=== PATIENT | female | born 1985 | race Caucasian/White ===

== ENCOUNTER 2016-07-31 15:13 | Emergency (ER) | payer SELFPAY ==
[~2016-07-31] VITALS: Ht 162.6 cm; Wt 55.0 kg
[~2016-07-31 15:13] MED LIST: AMOX125T PO; HYDR1TAB12 PO; OXYC-302 PO
[2016-07-31] MEDS ORDERED: FAMOTIDINE 20 MG/2 ML IVP ONE (16:00)
[2016-07-31] MEDS ORDERED: SODIUM CHLORIDE FLUSH 10ML SYR IVF ONE (16:00)
[2016-07-31] MEDS ORDERED: ONDANSETRON 2MG/ML, 2ML IVPush ONE (16:00)
[2016-07-31] MEDS ORDERED: SODIUM CHLORIDE 0.9% 1,000ML IVBOLUS ONE (16:00)
[2016-07-31 16:38] LABS: ASPARTATE AMINO TRANSFERASE 167 U/L (15-37); BLOOD UREA NITROGEN 5 mg/dL (7-18)
[2016-07-31] MEDS ORDERED: LORazepam 1MG TABLET PO ONE (18:30)
[2016-07-31] MEDS ORDERED: MAALOX/HYOSCYAMINE/LIDOCAINE 45 ML BOTTLE PO ONE (18:30)
[2016-07-31] MEDS ORDERED: LORazepam 1MG TABLET ONE (19:41)
[2016-07-31] MEDS ORDERED: MAALOX/HYOSCYAMINE/LIDOCAINE 45 ML BOTTLE ONE (19:42)
[2016-07-31 20:55] VITALS: BP 107/62
== END 2016-07-31 20:58 | disposition home or self-care (01) ==
LOC: ED 20:15
DX: F10.239 Alcohol dependence with withdrawal, unspecified (principal); M25.561 Pain in right knee; R10.13 Epigastric pain; L01.01 Non-bullous impetigo
CPT/HCPCS: 36415; 74020; 80053; 81003; 83690; 84703; 85025

== ENCOUNTER 2016-08-28 06:13 | Inpatient (IN) | payer SELFPAY ==
[~2016-08-28] VITALS: Ht 162.6 cm; Wt 52.1 kg
[2016-08-28] MEDS ORDERED: LORazepam 2 MG/ML, 1ML ONE ×3 (07:25→10:26)
[2016-08-28] MEDS ORDERED: ONDANSETRON 2MG/ML, 2ML ONE ×2 (07:25→08:33)
[2016-08-28] MEDS ORDERED: SODIUM CHLORIDE FLUSH 10ML SYR IVF ONE (07:30)
[2016-08-28] MEDS ORDERED: SODIUM CHLORIDE 0.9% 1,000ML IVBOLUS ONE (07:30)
[2016-08-28] MEDS ORDERED: ONDANSETRON 2MG/ML, 2ML IVPush ONE ×2 (07:30→09:00)
[2016-08-28] MEDS: LORazepam 2 MG/ML, 1ML IVPush PRN ×4 (07:33→19:43)
[2016-08-28 08:06] LABS: ASPARTATE AMINO TRANSFERASE 503 U/L (15-37); BLOOD UREA NITROGEN 6 mg/dL (7-18)
[2016-08-28 08:47] LABS: HEMOGLOBIN 12.8 g/dL (11.7-16.4)
[2016-08-28 08:50] LABS: DIFF TOTAL CELLS COUNTED 100 CELL DIFF
[2016-08-28 08:53] LABS: ANISOCYTOSIS 1+; GIANT PLATELETS 1+; LARGE PLATELETS 1+; VERIFY COUNTS? YES
[2016-08-28 08:54] LABS: POLYCHROMASIA 1+
[2016-08-28 09:00] LABS: DAU SCREEN DISCLAIMER
[2016-08-28 09:27] LABS: HCG UR OBC PASS
[2016-08-28] MEDS ORDERED: POTASSIUM CHLORIDE 40 MEQ in SODIUM CHLORIDE 0.9% 500 ML IV ONE (11:00)
[2016-08-28] MEDS ORDERED: HALOPERIDOL 5 MG/ML IM PRN (11:00)
[2016-08-28] MEDS ORDERED: ONDANSETRON 2MG/ML, 2ML IVP PRN (11:00)
[2016-08-28] MEDS ORDERED: LORazepam 2 MG/ML, 1ML IVPush PRN (11:00)
[2016-08-28] MEDS ORDERED: ENALAPRILAT 1.25 MG/ML, 2ML IVPush PRN (11:00)
[2016-08-28] MEDS ORDERED: ENOXAPARIN 40 MG/0.4 ML SQ SCH (12:00)
[2016-08-28] MEDS ORDERED: POTASSIUM CHLORIDE 20 MEQ, MAGNESIUM SULFATE 1 GM, THIAMINE 100 MG, FOLIC ACID 1 MG, MV... IV SCH ×2 (12:00→16:00)
[2016-08-28 12:23] VITALS: BP 119/78
[2016-08-28] MEDS ORDERED: NICOTINE 14MG/24 HR PATCH.TD24 TD SCH (13:00)
[2016-08-28] MEDS: MORPHINE SULFATE 4 MG/ML, 1ML IVPush PRN ×3 (13:06→20:45)
[2016-08-28 19:40] VITALS: BP 120/77
[2016-08-29] MEDS: MORPHINE SULFATE 4 MG/ML, 1ML IVPush PRN ×2 (00:05→04:02)
[2016-08-29 00:07] VITALS: BP 128/81
[2016-08-29] MEDS ORDERED: NS + 20MEQ KCL 1,000 ML IV SCH (01:00)
[2016-08-29] MEDS: LORazepam 2 MG/ML, 1ML IVPush PRN ×2 (01:36→05:57)
[2016-08-29 06:32] LABS: ASPARTATE AMINO TRANSFERASE 313 U/L (15-37); BLOOD UREA NITROGEN 11 mg/dL (7-18)
[2016-08-29 06:55] VITALS: BP 129/81
[2016-08-29 06:59] LABS: HEMOGLOBIN 12.4 g/dL (11.7-16.4)
[2016-08-29 07:00] LABS: DIFF TOTAL CELLS COUNTED 100 CELL DIFF
[2016-08-29 07:05] LABS: ANISOCYTOSIS 1+; LARGE PLATELETS 1+; POLYCHROMASIA 1+; VERIFY COUNTS? YES
[2016-08-29 07:24] LABS: HOWELL-JOLLY BODIES 1+
== END 2016-08-29 09:45 | disposition left against medical advice (07) | DRG 439 ==
LOC: ED 06:32 → SUATTDRO 10:16 → EDIP 10:36 → 4EST 11:40
PROVIDERS: ADMIT Internal Medicine; ATTEND Internal Medicine
PROC: 0T9B70Z Drainage of Bladder with Drainage Device, Via Natural or Artificial Opening (ICD-10-PCS; principal; 2016-08-28)
DX: K85.20 Alcohol induced acute pancreatitis without necrosis or infection (principal); E87.1 Hypo-osmolality and hyponatremia; E87.6 Hypokalemia; D75.89 Other specified diseases of blood and blood-forming organs; K70.10 Alcoholic hepatitis without ascites; S09.90XA Unspecified injury of head, initial encounter; W18.30XA Fall on same level, unspecified, initial encounter; K76.0 Fatty (change of) liver, not elsewhere classified; Z53.21 Procedure and treatment not carried out due to patient leaving prior to being seen by health care provider; W18.39XA Other fall on same level, initial encounter; F10.129 Alcohol abuse with intoxication, unspecified; Y90.6 Blood alcohol level of 120-199 mg/100 ml; Z90.49 Acquired absence of other specified parts of digestive tract; Z88.6 Allergy status to analgesic agent; Z88.5 Allergy status to narcotic agent; Z87.891 Personal history of nicotine dependence; Y93.89 Activity, other specified; Z90.81 Acquired absence of spleen; Z90.722 Acquired absence of ovaries, bilateral; Y92.89 Other specified places as the place of occurrence of the external cause; Y99.8 Other external cause status
CPT/HCPCS: 36415; 70450; 80053; 80307; 81001; 81025; 83690; 83735; 84100; 84702; 85025; 87086; 93005; 96374; 96375; 96376; J1650; J2405; J3411; J3475; J3480; J2060; J7030; J7040

== ENCOUNTER 2016-09-10 17:31 | Emergency (ER) | payer SELFPAY ==
[~2016-09-10] VITALS: Ht 162.6 cm; Wt 52.0 kg
[2016-09-10] MEDS ORDERED: ONDANSETRON 2MG/ML, 2ML IVPush ONE (18:00)
[2016-09-10] MEDS ORDERED: FAMOTIDINE 20 MG/2 ML IVP ONE (18:00)
[2016-09-10] MEDS ORDERED: SODIUM CHLORIDE FLUSH 10ML SYR IVF ONE (18:00)
[2016-09-10] MEDS ORDERED: SODIUM CHLORIDE 0.9% 1,000ML IVBOLUS ONE (18:00)
[2016-09-10] MEDS ORDERED: FAMOTIDINE 20 MG/2 ML ONE (18:26)
[2016-09-10] MEDS ORDERED: ONDANSETRON 2MG/ML, 2ML ONE (18:26)
[2016-09-10 18:29] LABS: BLOOD UREA NITROGEN 6 mg/dL (7-18)
[2016-09-10 18:32] LABS: ASPARTATE AMINO TRANSFERASE 171 U/L (15-37)
[2016-09-10 18:45] LABS: DIFF TOTAL CELLS COUNTED 100 CELL DIFF
[2016-09-10 18:49] LABS: ANISOCYTOSIS 1+
[2016-09-10 18:51] LABS: POLYCHROMASIA 1+
[2016-09-10 18:55] LABS: HOWELL-JOLLY BODIES 1+; LARGE PLATELETS 1+
[2016-09-10 18:56] LABS: VERIFY COUNTS? YES
[2016-09-10 19:10] LABS: PATH.CAST-FLAG NOT PRESENT; SPERM-FLAG NOT PRESENT; SRC-FLAG NOT PRESENT; XTAL-FLAG NOT PRESENT; YLC-FLAG NOT PRESENT
[2016-09-10] MEDS ORDERED: OMNIPAQUE 350 MG/ML, 100ML BOTTLE ONE (19:56)
[2016-09-10] MEDS ORDERED: CHLORDIAZEPOXIDE 25 MG CAPSULE PO PRN (20:00)
[2016-09-10 20:35] VITALS: BP 115/77
== END 2016-09-10 20:41 | disposition home or self-care (01) ==
LOC: ED 20:35
DX: K85.20 Alcohol induced acute pancreatitis without necrosis or infection (principal); A08.4 Viral intestinal infection, unspecified; F10.20 Alcohol dependence, uncomplicated; F17.200 Nicotine dependence, unspecified, uncomplicated; Z90.49 Acquired absence of other specified parts of digestive tract; Z90.81 Acquired absence of spleen; Z88.5 Allergy status to narcotic agent
CPT/HCPCS: 36415; 74177; 80053; 81001; 83690; 85025; 87086; 96361; 96374; 96375; 99285; J2405; J7030; Q9967; S0028

== ENCOUNTER 2016-09-17 18:40 | Emergency (ER) | payer SELFPAY ==
[~2016-09-17] VITALS: Ht 162.6 cm; Wt 49.3 kg
[2016-09-17] MEDS ORDERED: OXYcodone/APAP 5/325MG TABLET ONE (20:20)
[2016-09-17] MEDS ORDERED: LORazepam 1MG TABLET ONE (20:20)
[2016-09-17] MEDS ORDERED: OXYcodone/APAP 5/325MG TABLET PO ONE (20:30)
[2016-09-17] MEDS ORDERED: LORazepam 1MG TABLET PO ONE (20:30)
[2016-09-17] MEDS ORDERED: SODIUM CHLORIDE 0.9% 1,000ML IVBOLUS ONE (20:30)
[2016-09-17] MEDS ORDERED: SODIUM CHLORIDE FLUSH 10ML SYR IVF ONE (20:30)
[2016-09-17 20:35] LABS: BLOOD UREA NITROGEN 4 mg/dL (7-18)
[2016-09-17 20:40] LABS: ASPARTATE AMINO TRANSFERASE 352 U/L (15-37)
[2016-09-17 20:46] LABS: DIFF TOTAL CELLS COUNTED 100 CELL DIFF
[2016-09-17 20:54] LABS: ANISOCYTOSIS 1+
[2016-09-17 20:55] LABS: HOWELL-JOLLY BODIES 1+; POLYCHROMASIA 1+
[2016-09-17 20:56] LABS: GIANT PLATELETS 1+
[2016-09-17 20:57] LABS: VERIFY COUNTS? YES
[2016-09-17] MEDS ORDERED: OMNIPAQUE 350 MG/ML, 100ML BOTTLE ONE (21:10)
[2016-09-17] MEDS ORDERED: BACITRACIN ZINC OINT 500U/GM, 0.9 GM ONE (22:00)
[2016-09-17 22:01] VITALS: BP 126/89
== END 2016-09-17 22:21 | disposition home or self-care (01) ==
LOC: ED 22:15
DX: S00.83XA Contusion of other part of head, initial encounter (principal); S00.33XA Contusion of nose, initial encounter; S00.531A Contusion of lip, initial encounter; S30.0XXA Contusion of lower back and pelvis, initial encounter; S30.1XXA Contusion of abdominal wall, initial encounter; K75.9 Inflammatory liver disease, unspecified; F10.20 Alcohol dependence, uncomplicated; Y04.8XXA Assault by other bodily force, initial encounter; Y93.89 Activity, other specified; Y92.89 Other specified places as the place of occurrence of the external cause; Y99.8 Other external cause status; Z87.440 Personal history of urinary (tract) infections
CPT/HCPCS: 36415; 70450; 70486; 72220; 74177; 80053; 84703; 85025; 96360; 99285; J7030; Q9967

== ENCOUNTER 2016-10-01 22:10 | Emergency (ER) | payer SELFPAY ==
[~2016-10-01] VITALS: Ht 162.6 cm; Wt 47.7 kg
[2016-10-01] MEDS ORDERED: ONDANSETRON ODT 4 MG PO ONE (23:30)
[2016-10-01] MEDS ORDERED: LORazepam 2 MG/ML, 1ML IVPush ONE (23:30)
[2016-10-01] MEDS ORDERED: SODIUM CHLORIDE 0.9% 1,000ML IVBOLUS ONE (23:30)
[2016-10-01 23:56] LABS: BLOOD UREA NITROGEN 10 mg/dL (7-18)
[2016-10-01 23:58] LABS: ASPARTATE AMINO TRANSFERASE 821 U/L (15-37)
[2016-10-01 23:59] LABS: HCG UR OBC PASS
[2016-10-02 00:21] LABS: DIFF TOTAL CELLS COUNTED 100 CELL DIFF
[2016-10-02 00:29] LABS: ANISOCYTOSIS 1+; VERIFY COUNTS? YES
[2016-10-02 00:30] LABS: POIKILOCYTOSIS 1+
[2016-10-02 00:31] LABS: OVALOCYTES 1+
[2016-10-02 00:32] LABS: TARGET CELLS 1+
[2016-10-02 00:39] LABS: HOWELL-JOLLY BODIES 1+
[2016-10-02 00:40] LABS: LARGE PLATELETS 1+
[2016-10-02] MEDS ORDERED: ONDANSETRON ODT 4 MG ONE (00:45)
[2016-10-02] MEDS ORDERED: LORazepam 2 MG/ML, 1ML ONE (00:45)
[2016-10-02 01:46] VITALS: BP 121/74
== END 2016-10-02 01:48 | disposition home or self-care (01) ==
LOC: ED 23:59
DX: S06.0X9A Concussion with loss of consciousness of unspecified duration, initial encounter (principal); S39.012A Strain of muscle, fascia and tendon of lower back, initial encounter; F10.129 Alcohol abuse with intoxication, unspecified; R10.11 Right upper quadrant pain; W10.9XXA Fall (on) (from) unspecified stairs and steps, initial encounter; Y93.89 Activity, other specified; Y99.8 Other external cause status; Y92.009 Unspecified place in unspecified non-institutional (private) residence as the place of occurrence of the external cause; Z90.49 Acquired absence of other specified parts of digestive tract
CPT/HCPCS: 36415; 70450; 72110; 80053; 80307; 81001; 81025; 83690; 85025; 87086; 96361; 96374; 99285; J2060; J7030; Q0162

== ENCOUNTER 2016-10-20 02:44 | Emergency (ER) | payer SELFPAY ==
[~2016-10-20] VITALS: Ht 162.6 cm; Wt 50.0 kg
[2016-10-20] MEDS ORDERED: FAMOTIDINE 20 MG/2 ML IVP ONE (03:00)
[2016-10-20] MEDS ORDERED: ONDANSETRON 2MG/ML, 2ML IVPush ONE (03:00)
[2016-10-20] MEDS ORDERED: SODIUM CHLORIDE FLUSH 10ML SYR IVF ONE (03:00)
[2016-10-20] MEDS ORDERED: SODIUM CHLORIDE 0.9% 1,000ML IVBOLUS ONE (03:00)
[2016-10-20] MEDS ORDERED: LORazepam 2 MG/ML, 1ML IVPush ONE ×2 (03:00→04:00)
[2016-10-20] MEDS ORDERED: FAMOTIDINE 20 MG/2 ML ONE (03:05)
[2016-10-20] MEDS ORDERED: ONDANSETRON 2MG/ML, 2ML ONE (03:05)
[2016-10-20] MEDS ORDERED: LORazepam 2 MG/ML, 1ML ONE (03:05)
[2016-10-20 03:19] LABS: ASPARTATE AMINO TRANSFERASE 361 U/L (15-37); BLOOD UREA NITROGEN 10 mg/dL (7-18)
[2016-10-20 03:40] LABS: DIFF TOTAL CELLS COUNTED 100 CELL DIFF
[2016-10-20 03:47] LABS: ANISOCYTOSIS 1+; VERIFY COUNTS? YES
[2016-10-20 03:49] LABS: OVALOCYTES 1+; TARGET CELLS 1+
[2016-10-20 03:58] LABS: HOWELL-JOLLY BODIES 1+
[2016-10-20 03:59] LABS: GIANT PLATELETS 1+; LARGE PLATELETS 1+
[2016-10-20 04:08] VITALS: BP 117/83
== END 2016-10-20 04:37 | disposition home or self-care (01) ==
LOC: ED 03:35
DX: K70.9 Alcoholic liver disease, unspecified (principal); F10.239 Alcohol dependence with withdrawal, unspecified; R45.1 Restlessness and agitation; Z90.49 Acquired absence of other specified parts of digestive tract; Z88.5 Allergy status to narcotic agent
CPT/HCPCS: 36415; 74022; 80053; 83690; 84703; 85025; 96361; 96374; 96375; 96376; 99285; J2060; J2405; J7030; S0028

== ENCOUNTER 2016-11-04 17:35 | Emergency (ER) | payer SELFPAY ==
[~2016-11-04] VITALS: Ht 157.5 cm; Wt 47.7 kg
[2016-11-04] MEDS ORDERED: SODIUM CHLORIDE 0.9% 1,000ML IVBOLUS ONE (18:30)
[2016-11-04] MEDS ORDERED: ONDANSETRON 2MG/ML, 2ML IVPush ONE (18:30)
[2016-11-04] MEDS ORDERED: THIAMINE 100MG TABLET PO ONE (18:30)
[2016-11-04] MEDS ORDERED: SERT25TA PO (18:38)
[2016-11-04] MEDS ORDERED: LORA-446 PO (18:38)
[2016-11-04] MEDS ORDERED: ONDANSETRON 2MG/ML, 2ML ONE (18:42)
[2016-11-04 18:55] LABS: ASPARTATE AMINO TRANSFERASE 233 U/L (15-37); BLOOD UREA NITROGEN 9 mg/dL (7-18)
[2016-11-04] MEDS ORDERED: THIAMINE 100MG TABLET ONE (18:57)
[2016-11-04] MEDS ORDERED: LORazepam 2 MG/ML, 1ML IVPush ONE (19:00)
[2016-11-04] MEDS ORDERED: LORazepam 2 MG/ML, 1ML ONE (19:09)
[2016-11-04 23:08] VITALS: BP 90/50
== END 2016-11-04 23:59 | disposition home or self-care (01) ==
LOC: ED 21:45
DX: Z00.00 Encounter for general adult medical examination without abnormal findings (principal); F10.129 Alcohol abuse with intoxication, unspecified; F41.9 Anxiety disorder, unspecified
CPT/HCPCS: 36415; 80053; 80307; 83690; 84703; 85025; 96361; 96374; 96375; 99285; J2060; J2405; J7030

== ENCOUNTER 2016-11-23 05:42 | Emergency (ER) | payer SELFPAY ==
[~2016-11-23] VITALS: Ht 162.6 cm; Wt 47.6 kg
[~2016-11-23 05:42] MED LIST changes: +LORA-446 PO; +SERT25TA PO
[2016-11-23] MEDS ORDERED: LORazepam 2 MG/ML, 1ML IVPush PRN (07:00)
[2016-11-23] MEDS ORDERED: THIAMINE 100MG TABLET PO ONE (07:00)
[2016-11-23] MEDS ORDERED: SODIUM CHLORIDE 0.9% 1,000ML IVBOLUS ONE (07:00)
[2016-11-23] MEDS ORDERED: LORazepam 2 MG/ML, 1ML ONE ×2 (07:04→08:51)
[2016-11-23 07:13] LABS: ASPARTATE AMINO TRANSFERASE 312 U/L (15-37); BLOOD UREA NITROGEN 10 mg/dL (7-18)
[2016-11-23 07:34] LABS: DIFF TOTAL CELLS COUNTED 100 CELL DIFF
[2016-11-23 07:37] LABS: ANISOCYTOSIS 1+; VERIFY COUNTS? YES
[2016-11-23 07:38] LABS: OVALOCYTES 1+; POIKILOCYTOSIS 1+; TARGET CELLS 1+
[2016-11-23 07:39] LABS: HOWELL-JOLLY BODIES 1+; LARGE PLATELETS 1+
[2016-11-23] MEDS ORDERED: THIAMINE 100MG TABLET ONE (07:49)
[2016-11-23] MEDS ORDERED: FAMOTIDINE 20 MG/2 ML ONE (07:50)
[2016-11-23] MEDS ORDERED: FAMOTIDINE 20 MG/2 ML IVPush ONE ×2 (08:00)
[2016-11-23 08:57] VITALS: BP 113/81
[2016-11-23] MEDS ORDERED: LORazepam 2 MG/ML, 1ML IVPush ONE (09:00)
== END 2016-11-23 08:59 | disposition home or self-care (01) ==
LOC: ED 06:37
DX: K29.20 Alcoholic gastritis without bleeding (principal); F10.20 Alcohol dependence, uncomplicated; F41.9 Anxiety disorder, unspecified; R00.0 Tachycardia, unspecified; Z90.49 Acquired absence of other specified parts of digestive tract
CPT/HCPCS: 36415; 80053; 83690; 84703; 85025; 93005; 96361; 96374; 96375; 96376; 99285; J2060; J7030; S0028

== ENCOUNTER 2017-01-04 23:55 | Emergency (ER) | payer OTHER ==
[~2017-01-04] VITALS: Ht 162.6 cm; Wt 48.0 kg
[2017-01-04 23:59] VITALS: BP 122/86
[2017-01-05] MEDS ORDERED: SODIUM CHLORIDE 0.9% 1,000ML IVBOLUS ONE (01:00)
[2017-01-05] MEDS ORDERED: NALOXONE 1 MG/ML, 2ML IVPush ONE (01:00)
== END 2017-01-05 01:18 | disposition home or self-care (01) ==
LOC: ED 23:58
DX: F10.120 Alcohol abuse with intoxication, uncomplicated (principal)
CPT/HCPCS: 36415; 80307; 99283

== ENCOUNTER 2017-01-13 14:35 | Emergency (ER) | payer MEDICAID, OTHER ==
[~2017-01-13] VITALS: Ht 162.6 cm; Wt 48.0 kg
[2017-01-13] MEDS ORDERED: LORazepam 2 MG/ML, 1ML IVPush ONE (16:00)
[2017-01-13] MEDS ORDERED: SODIUM CHLORIDE 0.9% 1,000ML IV ONE (16:00)
[2017-01-13] MEDS ORDERED: SODIUM CHLORIDE FLUSH 10ML SYR IVF ONE (16:00)
[2017-01-13] MEDS ORDERED: ONDANSETRON 2MG/ML, 2ML IVPush ONE (16:00)
[2017-01-13] MEDS ORDERED: KETOROLAC 30 MG/1 ML IVPush ONE (16:00)
[2017-01-13] MEDS ORDERED: KETOROLAC 30 MG/1 ML ONE (16:03)
[2017-01-13] MEDS ORDERED: ONDANSETRON 2MG/ML, 2ML ONE (16:03)
[2017-01-13] MEDS ORDERED: LORazepam 2 MG/ML, 1ML ONE (16:03)
[2017-01-13 16:26] LABS: ASPARTATE AMINO TRANSFERASE 132 U/L (15-37); BLOOD UREA NITROGEN 7 mg/dL (7-18)
[2017-01-13 16:41] LABS: HEMATOCRIT 40.3 % (34.6-47.8); WHITE BLOOD COUNT 3.6 x10^3/uL (3.4-10)
[2017-01-13 16:46] LABS: DIFF TOTAL CELLS COUNTED 100 CELL DIFF
[2017-01-13 16:49] LABS: VERIFY COUNTS? YES
[2017-01-13 16:50] LABS: ANISOCYTOSIS 1+; HYPOCHROMIA 1+; OVALOCYTES 1+; TARGET CELLS 1+
[2017-01-13 16:51] LABS: GIANT PLATELETS 1+; HOWELL-JOLLY BODIES 1+; LARGE PLATELETS 1+
[2017-01-13 18:06] VITALS: BP 121/83
== END 2017-01-13 18:08 | disposition home or self-care (01) ==
LOC: ED 15:09
DX: R10.11 Right upper quadrant pain (principal); F10.239 Alcohol dependence with withdrawal, unspecified
CPT/HCPCS: 36415; 80053; 83605; 85025; 93005; 96361; 96374; 96375; 99285; J1885; J2060; J2405; J7030

== ENCOUNTER 2017-01-17 00:48 | Emergency (ER) | payer MEDICAID ==
[~2017-01-17] VITALS: Ht 167.6 cm; Wt 52.3 kg
[2017-01-17] MEDS ORDERED: DIPH,PERTUSS(ACELL),TET VAC/PF 0.5 ML IM-VACC PRN (01:30)
[2017-01-17] MEDS ORDERED: LIDOCAINE 1%, 20ML SQ ONE (01:30)
[2017-01-17] MEDS ORDERED: L.E.T SOLUTION TP ONE (01:30)
[2017-01-17] MEDS ORDERED: DIPH,PERTUSS(ACELL),TET VAC/PF 0.5 ML IM-VACC ONE (01:31)
[2017-01-17 01:45] VITALS: BP 120/76
[2017-01-17] MEDS ORDERED: LIDOCAINE 1%, 20ML ONE (01:50)
== END 2017-01-17 04:07 | disposition home or self-care (01) ==
LOC: ED 01:13
DX: S01.511A Laceration without foreign body of lip, initial encounter (principal); F10.220 Alcohol dependence with intoxication, uncomplicated; Z88.5 Allergy status to narcotic agent; W18.39XA Other fall on same level, initial encounter; Y93.89 Activity, other specified; Y92.89 Other specified places as the place of occurrence of the external cause; Y99.8 Other external cause status
CPT/HCPCS: 12051; 70450; 70486; 72125; 90471; 90715

== ENCOUNTER 2017-01-23 05:17 | Emergency (ER) | payer MEDICAID ==
[~2017-01-23] VITALS: Ht 162.6 cm; Wt 48.0 kg
[2017-01-23] MEDS ORDERED: BACITRACIN ZINC OINT 500U/GM, 0.9 GM ONE (05:41)
[2017-01-23] MEDS: SODIUM CHLORIDE FLUSH 10ML SYR IVF ONE ×2 (05:49→05:53)
[2017-01-23] MEDS ORDERED: SODIUM CHLORIDE 0.9% 1,000ML IVBOLUS ONE (06:00)
[2017-01-23] MEDS ORDERED: HYDROcodone/APAP 5/325 TABLET ONE (06:54)
[2017-01-23] MEDS ORDERED: LIDOCAINE 1%, 20ML ONE (06:54)
[2017-01-23] MEDS ORDERED: HYDROcodone/APAP 5/325 TABLET PO ONE (07:30)
[2017-01-23] MEDS ORDERED: LIDOCAINE 1%, 20ML INFIL ONE (07:30)
[2017-01-23 07:47] VITALS: BP 117/89
== END 2017-01-23 07:50 | disposition home or self-care (01) ==
LOC: ED 05:35
DX: S00.83XA Contusion of other part of head, initial encounter (principal); S00.33XA Contusion of nose, initial encounter; S00.531A Contusion of lip, initial encounter; W01.0XXA Fall on same level from slipping, tripping and stumbling without subsequent striking against object, initial encounter; Y93.89 Activity, other specified; Y92.009 Unspecified place in unspecified non-institutional (private) residence as the place of occurrence of the external cause; Y99.8 Other external cause status
CPT/HCPCS: 70486; 93005; 96360; 99284; J3490; J7030

== ENCOUNTER 2017-01-23 09:38 | Inpatient (IN) | payer MEDICAID ==
[~2017-01-23] VITALS: Ht 162.6 cm; Wt 51.8 kg
[2017-01-23] MEDS ORDERED: SODIUM CHLORIDE 0.9% 1,000 ML IV ONE (10:07)
[2017-01-23] MEDS ORDERED: ONDANSETRON 2MG/ML, 2ML IVPush ONE (10:30)
[2017-01-23] MEDS ORDERED: THIAMINE 100 MG in SODIUM CHLORIDE 0.9% 50 ML IVPB ONE (10:30)
[2017-01-23] MEDS ORDERED: SODIUM CHLORIDE 0.9% 1,000ML IVBOLUS ONE (10:30)
[2017-01-23] MEDS ORDERED: SODIUM CHLORIDE FLUSH 10ML SYR IVF ONE (10:30)
[2017-01-23] MEDS ORDERED: LORazepam 2 MG/ML, 1ML ONE ×2 (10:41→11:57)
[2017-01-23] MEDS ORDERED: ONDANSETRON 2MG/ML, 2ML ONE (10:41)
[2017-01-23] MEDS: LORazepam 2 MG/ML, 1ML IVPush PRN ×6 (10:49→20:07)
[2017-01-23 11:17] LABS: BLOOD UREA NITROGEN 10 mg/dL (7-18)
[2017-01-23 11:23] LABS: ASPARTATE AMINO TRANSFERASE 203 U/L (15-37)
[2017-01-23 11:30] LABS: HEMATOCRIT 34.9 % (34.6-47.8); HEMOGLOBIN 11.5 g/dL (11.7-16.4); WHITE BLOOD COUNT 8.8 x10^3/uL (3.4-10)
[2017-01-23 11:36] LABS: DIFF TOTAL CELLS COUNTED 100 CELL DIFF
[2017-01-23 11:37] LABS: VERIFY COUNTS? YES
[2017-01-23 11:38] LABS: ANISOCYTOSIS 1+; HOWELL-JOLLY BODIES 1+; POIKILOCYTOSIS 1+
[2017-01-23 11:39] LABS: LARGE PLATELETS 1+; TARGET CELLS 1+
[2017-01-23] MEDS: SODIUM CHLORIDE 0.9% 1,000 ML IV SCH ×2 (12:56→19:36)
[2017-01-23] MEDS ORDERED: ONDANSETRON 2MG/ML, 2ML IVPush PRN (13:00)
[2017-01-23] MEDS ORDERED: POTASSIUM CHLORIDE 40 MEQ in SODIUM CHLORIDE 0.9% 500 ML IV ONE (13:00)
[2017-01-23] MEDS ORDERED: HALOPERIDOL 5 MG/ML IVPush PRN (13:00)
[2017-01-23] MEDS ORDERED: hydrALAzine 20 MG/ML, 1ML IVPush PRN (13:00)
[2017-01-23 14:06] LABS: BLOOD UREA NITROGEN 11 mg/dL (7-18)
[2017-01-23 14:21] VITALS: BP 115/76
[2017-01-23] MEDS: POTASSIUM CHLORIDE 20 MEQ, MAGNESIUM SULFATE 1 GM, FOLIC ACID 1 MG, THIAMINE 100 MG, MV... IV SCH (15:06)
[2017-01-23] MEDS: NYSTATIN 500,000 UNITS/5 ML UDC PO SCH ×2 (15:08→20:07)
[2017-01-23] MEDS: NICOTINE 14MG/24 HR PATCH.TD24 TD SCH (15:08)
[2017-01-23] MEDS: OXYcodone IR 5MG TABLET PO PRN (17:07)
[2017-01-23 20:10] VITALS: BP 125/83
[2017-01-24] MEDS: LORazepam 2 MG/ML, 1ML IVPush PRN ×3 (01:31→16:40)
[2017-01-24 01:38] VITALS: BP 128/92
[2017-01-24] MEDS: morphine SULFATE 10 MG/ML, 1ML IVPush PRN ×2 (01:39→05:49)
[2017-01-24] MEDS: SODIUM CHLORIDE 0.9% 1,000 ML IV SCH ×2 (04:00→10:40)
[2017-01-24] MEDS: NYSTATIN 500,000 UNITS/5 ML UDC PO SCH ×4 (05:49→21:32)
[2017-01-24 07:00] VITALS: BP 132/90
[2017-01-24 07:56] VITALS: BP 127/86
[2017-01-24] MEDS: PANTOPROZOLE 40MG TABLET PO SCH (08:30)
[2017-01-24 09:24] VITALS: BP 112/77
[2017-01-24 12:20] VITALS: BP 119/76
[2017-01-24] MEDS: NICOTINE 14MG/24 HR PATCH.TD24 TD SCH (13:00)
[2017-01-24] MEDS ORDERED: LIDOCAINE 2% VISCOUS 15 ML UDC MM PRN (16:00)
[2017-01-24] MEDS: POTASSIUM CHLORIDE 20 MEQ, MAGNESIUM SULFATE 1 GM, FOLIC ACID 1 MG, THIAMINE 100 MG, MV... IV SCH (16:41)
[2017-01-24 19:07] VITALS: BP 106/67
[2017-01-25 01:51] VITALS: BP 105/67
[2017-01-25] MEDS: SODIUM CHLORIDE 0.9% 1,000 ML IV SCH ×3 (02:12→15:20)
[2017-01-25] MEDS: PIPERACILLIN/TAZO/PMX 3.375GM 50 ML IV SCH ×3 (03:44→21:08)
[2017-01-25 04:41] LABS: BLOOD UREA NITROGEN 5 mg/dL (7-18)
[2017-01-25] MEDS: NYSTATIN 500,000 UNITS/5 ML UDC PO SCH ×4 (06:34→21:00)
[2017-01-25 07:26] VITALS: BP 101/65
[2017-01-25] MEDS: PANTOPROZOLE 40MG TABLET PO SCH (09:34)
[2017-01-25 12:41] VITALS: BP 95/59
[2017-01-25] MEDS: NICOTINE 14MG/24 HR PATCH.TD24 TD SCH (13:00)
[2017-01-25] MEDS: POTASSIUM CHLORIDE 20 MEQ, MAGNESIUM SULFATE 1 GM, FOLIC ACID 1 MG, THIAMINE 100 MG, MV... IV SCH (16:24)
[2017-01-25 19:44] VITALS: BP 103/64
[2017-01-26 01:40] VITALS: BP 112/74
[2017-01-26] MEDS: PIPERACILLIN/TAZO/PMX 3.375GM 50 ML IV SCH ×3 (04:40→21:10)
[2017-01-26] MEDS: NYSTATIN 500,000 UNITS/5 ML UDC PO SCH ×4 (04:41→21:10)
[2017-01-26 08:13] VITALS: BP 104/68
[2017-01-26] MEDS: SODIUM CHLORIDE 0.9% 1,000 ML IV SCH ×2 (08:13→15:28)
[2017-01-26] MEDS: PANTOPROZOLE 40MG TABLET PO SCH (08:13)
[2017-01-26] MEDS: LORazepam 2 MG/ML, 1ML IVPush PRN ×3 (11:11→20:28)
[2017-01-26 12:17] VITALS: BP 97/60
[2017-01-26] MEDS: NICOTINE 14MG/24 HR PATCH.TD24 TD SCH (13:16)
[2017-01-26] MEDS: POTASSIUM CHLORIDE 20 MEQ, MAGNESIUM SULFATE 1 GM, FOLIC ACID 1 MG, THIAMINE 100 MG, MV... IV SCH (13:58)
[2017-01-26 19:07] VITALS: BP 110/76
[2017-01-26] MEDS: OXYcodone IR 5MG TABLET PO PRN (21:07)
[2017-01-27 01:07] VITALS: BP 103/69
[2017-01-27] MEDS: OXYcodone IR 5MG TABLET PO PRN (01:13)
[2017-01-27] MEDS: LORazepam 2 MG/ML, 1ML IVPush PRN (01:14)
[2017-01-27] MEDS: SODIUM CHLORIDE 0.9% 1,000 ML IV SCH ×2 (02:26→08:52)
[2017-01-27] MEDS: PIPERACILLIN/TAZO/PMX 3.375GM 50 ML IV SCH (05:25)
[2017-01-27] MEDS: NYSTATIN 500,000 UNITS/5 ML UDC PO SCH (05:25)
[2017-01-27 07:26] VITALS: BP 100/64
[2017-01-27] MEDS: PANTOPROZOLE 40MG TABLET PO SCH (08:51)
== END 2017-01-27 12:46 | disposition left against medical advice (07) | DRG 189 ==
LOC: ED 09:42 → EDIP 12:56 → 3NE 13:50 → 4EST 01-24 08:06 → 3NE 01-24 08:11 → 4EST 01-24 09:07
PROVIDERS: ADMIT Internal Medicine; ATTEND Internal Medicine
DX: J96.00 Acute respiratory failure, unspecified whether with hypoxia or hypercapnia (principal); B37.0 Candidal stomatitis; I11.0 Hypertensive heart disease with heart failure; I50.9 Heart failure, unspecified; R56.9 Unspecified convulsions; E10.9 Type 1 diabetes mellitus without complications; F10.239 Alcohol dependence with withdrawal, unspecified; E87.6 Hypokalemia; F39 Unspecified mood [affective] disorder; F41.1 Generalized anxiety disorder; Z53.21 Procedure and treatment not carried out due to patient leaving prior to being seen by health care provider; H54.7 Unspecified visual loss; I25.10 Atherosclerotic heart disease of native coronary artery without angina pectoris; J44.9 Chronic obstructive pulmonary disease, unspecified; K70.10 Alcoholic hepatitis without ascites; K76.0 Fatty (change of) liver, not elsewhere classified; Z79.4 Long term (current) use of insulin; Z87.891 Personal history of nicotine dependence; Z90.49 Acquired absence of other specified parts of digestive tract; Z90.81 Acquired absence of spleen; Z91.81 History of falling
CPT/HCPCS: 36415; 71010; 80048; 80053; 80307; 81001; 83605; 83735; 84100; 84145; 84703; 85025; 87040; 87086; 87324; 96365; 96375; J2405; J2543; J3411; J3475; J3480; 92523-GN; J2060; J2270; J7030; J7040; J7121

== ENCOUNTER 2017-01-30 17:49 | Emergency (ER) | payer MEDICAID ==
[~2017-01-30] VITALS: Ht 162.6 cm; Wt 45.4 kg
[2017-01-30] MEDS ORDERED: SODIUM CHLORIDE 0.9% 1,000ML IVBOLUS ONE ×2 (18:30→20:00)
[2017-01-30 19:14] LABS: BLOOD UREA NITROGEN 6 mg/dL (7-18)
[2017-01-30 19:21] LABS: ACETAMINOPHEN < 2 mcg/mL (10-30)
[2017-01-30 19:31] LABS: HEMOGLOBIN 10.7 g/dL (11.7-16.4); WHITE BLOOD COUNT 17.2 x10^3/uL (3.4-10)
[2017-01-30] MEDS ORDERED: CEFTRIAXONE PMX 1GM/50ML 50 ML ONE (19:42)
[2017-01-30 19:51] LABS: DIFF TOTAL CELLS COUNTED 100 CELL DIFF
[2017-01-30 19:52] LABS: VERIFY COUNTS? YES
[2017-01-30 19:53] LABS: ANISOCYTOSIS 1+; OVALOCYTES 1+; POIKILOCYTOSIS 1+
[2017-01-30 19:54] LABS: TARGET CELLS 1+
[2017-01-30 19:55] LABS: HOWELL-JOLLY BODIES 1+; POLYCHROMASIA 1+
[2017-01-30 19:57] LABS: LARGE PLATELETS 1+
[2017-01-30] MEDS ORDERED: CEFTRIAXONE PMX 1GM/50ML 50 ML IVPB ONE (20:00)
[2017-01-30 22:05] VITALS: BP 92/58
== END 2017-01-30 23:45 | disposition home or self-care (01) ==
LOC: ED 18:27
DX: G92 Toxic encephalopathy (principal); F10.129 Alcohol abuse with intoxication, unspecified; F19.10 Other psychoactive substance abuse, uncomplicated
CPT/HCPCS: 36415; 71010; 80048; 80307; 80329; 81003; 82040; 83605; 84703; 85025; 87040; 96365; 99285; J0696; J7030; G0479; G0480

== ENCOUNTER 2017-02-07 23:34 | Inpatient (IN) | payer MEDICAID ==
[~2017-02-07] VITALS: Ht 162.6 cm; Wt 49.5 kg
[2017-02-08] MEDS ORDERED: FAMOTIDINE 20 MG/2 ML IVP ONE
[2017-02-08] MEDS ORDERED: ONDANSETRON 2MG/ML, 2ML IVPush ONE
[2017-02-08] MEDS ORDERED: SODIUM CHLORIDE FLUSH 10ML SYR IVF ONE
[2017-02-08] MEDS ORDERED: SODIUM CHLORIDE 0.9% 1,000ML IVBOLUS ONE
[2017-02-08 00:11] LABS: ASPARTATE AMINO TRANSFERASE 166 U/L (15-37); BLOOD UREA NITROGEN 6 mg/dL (7-18)
[2017-02-08 00:37] LABS: HEMATOCRIT 34.7 % (34.6-47.8); WHITE BLOOD COUNT 15.4 x10^3/uL (3.4-10)
[2017-02-08 01:17] LABS: DIFF TOTAL CELLS COUNTED 100 CELL DIFF
[2017-02-08 01:22] LABS: VERIFY COUNTS? YES
[2017-02-08 01:24] LABS: ANISOCYTOSIS 1+; POIKILOCYTOSIS 1+; POLYCHROMASIA 1+
[2017-02-08 01:25] LABS: HOWELL-JOLLY BODIES 1+; OVALOCYTES 1+; TARGET CELLS 1+
[2017-02-08 01:26] LABS: LARGE PLATELETS 1+
[2017-02-08] MEDS ORDERED: SODIUM CHLORIDE 0.9% 1,000 ML IV SCH (02:55)
[2017-02-08] MEDS ORDERED: hydrALAzine 20 MG/ML, 1ML IVPush PRN (03:00)
[2017-02-08] MEDS ORDERED: LORazepam 2 MG/ML, 1ML IVPush PRN (03:00)
[2017-02-08] MEDS ORDERED: ONDANSETRON 2MG/ML, 2ML IVPush PRN (03:00)
[2017-02-08] MEDS ORDERED: ENOXAPARIN 40 MG/0.4 ML SQ SCH (03:00)
[2017-02-08] MEDS ORDERED: MAGNESIUM SULFATE 1 GM, THIAMINE 100 MG, FOLIC ACID 1 MG, MVI ADULT 10 ML in SODIUM CHL... IV ONE ×2 (03:00→23:30)
[2017-02-08 05:06] VITALS: BP 110/73
[2017-02-08] MEDS: LORazepam 2 MG/ML, 1ML IVPush PRN ×2 (06:12→10:19)
[2017-02-08] MEDS ORDERED: PANTOPRAZOLE 40 MG IV IVPush SCH (07:30)
[2017-02-08 07:55] VITALS: BP 105/65
[2017-02-08 08:34] LABS: HEMOGLOBIN 10.5 g/dL (11.7-16.4); WHITE BLOOD COUNT 14.9 x10^3/uL (3.4-10)
[2017-02-08 08:40] LABS: ASPARTATE AMINO TRANSFERASE 152 U/L (15-37); BLOOD UREA NITROGEN 7 mg/dL (7-18)
[2017-02-08 09:35] LABS: DIFF TOTAL CELLS COUNTED 100 CELL DIFF
[2017-02-08 09:37] LABS: VERIFY COUNTS? YES
[2017-02-08 09:38] LABS: ANISOCYTOSIS 1+
[2017-02-08 09:42] LABS: HOWELL-JOLLY BODIES 1+
[2017-02-08 09:43] LABS: LARGE PLATELETS 1+
== END 2017-02-08 12:44 | disposition left against medical advice (07) | DRG 440 ==
LOC: ED 23:59 → EDIP 02-08 02:36 → 5SO 02-08 04:08
PROVIDERS: ADMIT Internal Medicine; ATTEND Internal Medicine
DX: K85.20 Alcohol induced acute pancreatitis without necrosis or infection (principal); G31.2 Degeneration of nervous system due to alcohol; K70.9 Alcoholic liver disease, unspecified; E87.6 Hypokalemia; Z53.21 Procedure and treatment not carried out due to patient leaving prior to being seen by health care provider; D53.9 Nutritional anemia, unspecified; F10.229 Alcohol dependence with intoxication, unspecified; H54.7 Unspecified visual loss; Z90.81 Acquired absence of spleen
CPT/HCPCS: 36415; 80053; 80307; 83690; 84703; 85025; 99285; J1650; C9113; G0479; J2060; J7030

== ENCOUNTER 2017-02-12 11:18 | Emergency (ER) | payer MEDICAID ==
[~2017-02-12] VITALS: Ht 165.1 cm; Wt 50.0 kg
[2017-02-12 12:23] VITALS: BP 109/78
== END 2017-02-12 13:43 | disposition home or self-care (01) ==
LOC: ED 12:27
DX: F10.220 Alcohol dependence with intoxication, uncomplicated (principal)
CPT/HCPCS: 99283

== ENCOUNTER 2017-02-27 23:45 | Emergency (ER) | payer MEDICAID ==
[~2017-02-27] VITALS: Ht 162.6 cm; Wt 53.0 kg
[2017-02-28] MEDS ORDERED: ACETAMINOPHEN 325 MG TABLET PO ONE (00:30)
[2017-02-28] MEDS ORDERED: ACETAMINOPHEN 325 MG TABLET ONE (00:37)
[2017-02-28 02:10] VITALS: BP 123/74
== END 2017-02-28 02:13 | disposition home or self-care (01) ==
LOC: ED 23:56
DX: S00.11XA Contusion of right eyelid and periocular area, initial encounter (principal); Z90.49 Acquired absence of other specified parts of digestive tract; Y04.0XXA Assault by unarmed brawl or fight, initial encounter; Y93.89 Activity, other specified; Y92.89 Other specified places as the place of occurrence of the external cause; Y99.8 Other external cause status
CPT/HCPCS: 70450; 70486; 99284

== ENCOUNTER 2018-10-09 06:51 | Emergency (ER) | payer SELFPAY ==
[~2018-10-09] VITALS: Ht 162.6 cm; Wt 62.0 kg
[~2018-10-09 06:51] MED LIST changes: -HYDR1TAB12 PO; +HYDR1TAB13 PO
--- NOTE | 2018-10-09 07:15 | NUR ---
PT NOT IN ROOM AT THIS TIME.
[2018-10-09] MEDS ORDERED: MORPHINE SULFATE 4 MG/ML, 1ML ONE ×2 (07:53→09:19)
[2018-10-09] MEDS ORDERED: ONDANSETRON 2MG/ML, 2ML ONE ×2 (07:54→09:19)
[2018-10-09] MEDS: MORPHINE SULFATE 4 MG/ML, 1ML IVPush PRN ×2 (07:57→09:22)
[2018-10-09] MEDS ORDERED: SODIUM CHLORIDE FLUSH 10ML SYR IVF ONE (08:00)
[2018-10-09] MEDS ORDERED: ONDANSETRON 2MG/ML, 2ML IVPush ONE ×2 (08:00→09:30)
--- NOTE | 2018-10-09 08:03 | NUR ---
FIRST CONTACT WITH PT. PT SITTING IN BED, HOLDING EMESIS BAG. NO ACUTE DISTRESS. REPORTS PAIN AT 6 OF 10.
--- NOTE | 2018-10-09 08:13 | NUR ---
PT REPORTS THAT SHE IS "THROWING UP AT LEAST ONCE PER HOUR". PT REPORTS PRIOR HX OF SPLENIC REMOVAL , APPENDECTOMY, AND REMOVAL OF GALLBLADDER. ALL OF THESE PROCEDURES SHE REPORTS, "OCCURED BETWEEN 2006 AND 2014". PT REPORTS DIARRHEA "ON FRIDAY" AND SHE HAD A "NORMAL" BM YESTERDAY AND "ATTEMPTED TO CRACKERS ALL DAY YESTERDAY, BUT COULDN'T KEEP THEM DOWN". PT DENIES BLOOD IN STOOL. HYPOACTIVE BOWEL SOUNDS. PT GIVEN MORPHINE AND ZOFRAN. PT STATES, "THAT ZOFRAN WORKS SO QUICK, I FEEL MUCH BETTER".
[2018-10-09 08:14] LABS: MEAN CORPUSCULAR HEMOGLOBIN 26.9 pg (27.0-34.8); MEAN CORPUSCULAR HGB CONC 31.9 g/dL (32.4-35.8); MEAN CORPUSCULAR VOLUME 84.3 fL (80-100); PLATELET COUNT 275 x10^3/uL (130-400); RED BLOOD COUNT 5.08 x10^6/uL (3.82-5.3); RED CELL DISTRIBUTION WIDTH 16.4 % (9.6-15.2)
[2018-10-09 08:24] LABS: ALANINE AMINOTRANSFERASE 22 U/L (12-78); ALBUMIN 4.3 g/dL (3.4-5.0); ANION GAP 8 mmol/L (5-15); CHLORIDE 97 mmol/L (98-107)
[2018-10-09 08:29] LABS: ALKALINE PHOSPHATASE 114 U/L (45-117); CREATININE 0.89 mg/dL (0.55-1.02); TOTAL PROTEIN 8.6 g/dL (6.4-8.2)
[2018-10-09] MEDS ORDERED: CALC200T3 PO (08:32)
--- NOTE | 2018-10-09 08:38 | NUR ---
PT REPORTS, "MY PAIN HAS GONE DOWN TO A 5, I THINK THE PAIN MEDS YOU GAVE ME ARE WORKING".
[2018-10-09 08:44] LABS: BASOPHILS % (AUTO) 1 % (0-1); EOSINOPHILS # (AUTO) 0.04 x10^3/uL (0-0.4); EOSINOPHILS % (AUTO) 0 % (1-7); LYMPHOCYTES # (AUTO) 3.04 x10^3/uL (1-3.4); LYMPHOCYTES % (AUTO) 34 % (22-44); MD SCAN; MONOCYTES # (AUTO) 0.63 x10^3/uL (0.2-0.8); MONOCYTES % (AUTO) 7 % (2-9); NEUTROPHILS # (AUTO) 5.04 x10^3/uL (1.8-6.8); NEUTROPHILS % (AUTO) 57 % (42-75)
[2018-10-09 08:47] LABS: MICROSCOPIC INDICATED
[2018-10-09 08:55] LABS: CULTURE INDICATED? YES
--- NOTE | 2018-10-09 09:12 | NUR ---
PT REPORTS, "THE PAIN AND NAUSEA MEDS WORKED GREAT AT FIRST, BUT NOW MY SYMPTOMS ARE COMING BACK" PT RATES HER PAIN AT A 6 AND REPORTS HER NAUSEA IS ALSO "ABOUT A 6". TOLD PT THAT WE WOULD NEED TO STRAIGHT CATH HER SO THAT WE CAN OBTAIN A PROPER URINE COLLECTION. PT IS AGREEABLE TO THIS.
[2018-10-09] MEDS ORDERED: FAMOTIDINE 20 MG/2 ML IVPush ONE (09:30)
[2018-10-09] MEDS ORDERED: SODIUM CHLORIDE 0.9% 1,000ML IVBOLUS ONE (09:30)
[2018-10-09] MEDS ORDERED: FAMOTIDINE 20 MG/2 ML ONE (09:46)
--- NOTE | 2018-10-09 09:53 | NUR ---
PAIN REDUCED TO 4, NAUSEA IMPROVING. PT TO CT.
[2018-10-09] MEDS ORDERED: OMNIPAQUE 350 MG/ML, 100ML BOTTLE ONE (10:14)
[2018-10-09 10:33] LABS: MICROSCOPIC NOT IND
[2018-10-09 10:36] LABS: CULTURE INDICATED? NO
--- NOTE | 2018-10-09 12:43 | NUR ---
PT DRESSED AND READY TO GO. IV DC'D WITH CANNULA INTACT, REVIEWED DC INSTRUCTIONS WITH PT, UNDERSTANDING VERBALIZED. PT PROVIDED WITH GOOD RX CARD AND CARE CHEST INFORMATION. PT LEFT AMB, GAIT STEADY. PT WITH FAMILY.
[2018-10-09 12:44] VITALS: BP 128/87
== END 2018-10-09 12:46 | disposition home or self-care (01) ==
LOC: ED 09:05
DX: R10.84 Generalized abdominal pain (principal); R11.2 Nausea with vomiting, unspecified; Z88.5 Allergy status to narcotic agent
CPT/HCPCS: 36415; 74021; 74177; 80053; 81001; 81003; 83690; 84703; 85025; 87086; 96361; 96374; 96375; 96376; 99284; J2270; J2405; J3490; J7030; Q9967

== ENCOUNTER 2018-10-10 21:35 | Inpatient (IN) | payer OTHER ==
[~2018-10-10] VITALS: Ht 162.6 cm; Wt 63.6 kg
[~2018-10-10 21:35] MED LIST changes: +CALC200T3 PO
--- NOTE | 2018-10-10 21:59 | NUR ---
PT WAS SEEN HERE YESTERDAY FOR BOWEL OBSTRUCTION AND SHE CHOSE TO GO HOME, PAIN/NAUSEA/VOMITING WORSE TODAY. PT PLACED ON MONITOR, VSS, PA AT BEDSIDE
[2018-10-10 22:18] LABS: MEAN CORPUSCULAR HEMOGLOBIN 27.2 pg (27.0-34.8); MEAN CORPUSCULAR HGB CONC 31.9 g/dL (32.4-35.8); MEAN CORPUSCULAR VOLUME 85.3 fL (80-100); MEAN PLATELET VOLUME 10.1 fL (7.4-10.4); PLATELET COUNT 219 x10^3/uL (130-400); RED BLOOD COUNT 4.17 x10^6/uL (3.82-5.3)
[2018-10-10 22:29] LABS: ALBUMIN 3.9 g/dL (3.4-5.0); ANION GAP 7 mmol/L (5-15); CALCIUM 8.3 mg/dL (8.5-10.1); CHLORIDE 102 mmol/L (98-107)
[2018-10-10] MEDS ORDERED: ONDANSETRON 2MG/ML, 2ML ONE (22:29)
[2018-10-10] MEDS ORDERED: MORPHINE SULFATE 4 MG/ML, 1ML ONE (22:29)
[2018-10-10] MEDS ORDERED: SODIUM CHLORIDE FLUSH 10ML SYR IVF ONE (22:30)
[2018-10-10] MEDS ORDERED: MORPHINE SULFATE 4 MG/ML, 1ML IVPush PRN ×2 (22:30→23:00)
[2018-10-10] MEDS ORDERED: ONDANSETRON 2MG/ML, 2ML IVPush ONE (22:30)
[2018-10-10 22:31] LABS: MD YES
[2018-10-10 22:33] LABS: ANISOCYTOSIS 1+; LYMPH#(MANUAL) 1.92 x10^3/uL (1-3.4); LYMPHS% (MANUAL) 19 % (22-44); MONOS#(MANUAL) 0.81 x10^3/uL (0.3-2.7); MONOS% (MANUAL) 8 % (2-9); NRBC % (MANUAL) 1 % (0-1); SEG#(MANUAL) 7.37 x10^3/uL (1.8-6.8); SEGS% (MANUAL) 73 % (42-75)
[2018-10-10 22:34] LABS: ECHINOCYTES 1+
[2018-10-10 22:35] LABS: ALANINE AMINOTRANSFERASE 22 U/L (12-78); ALKALINE PHOSPHATASE 95 U/L (45-117); BILIRUBIN,TOTAL 0.5 mg/dL (0.2-1.0); CREATININE 0.87 mg/dL (0.55-1.02); OVALOCYTES 1+; PMNS WITH VACUOLES 1+; TOTAL PROTEIN 7.2 g/dL (6.4-8.2)
[2018-10-10 22:36] LABS: <PLATELET ESTIMATE> ADEQUATE; ACANTHOCYTES 1+; HOWELL-JOLLY BODIES 1+
[2018-10-10 22:37] LABS: <PLT MORPHOLOGY> NORMAL PLT MORPH
[2018-10-10] MEDS ORDERED: SODIUM CHLORIDE 0.9% 1,000 ML IV ONE (22:52)
[2018-10-10] MEDS ORDERED: ONDANSETRON 2MG/ML, 2ML IVPush PRN (23:00)
[2018-10-10 23:04] LABS: CULTURE INDICATED? YES; MICROSCOPIC INDICATED
--- NOTE | 2018-10-10 23:04 | NUR ---
REPORT TO JUANA BENITEZ
[2018-10-10] MEDS: BISACODYL 10 MG SUPP PR SCH (23:30)
[2018-10-10] MEDS: CEFTRIAXONE PMX 1GM/50ML 50 ML IV SCH (23:49)
[2018-10-10] MEDS: NS + 20MEQ KCL 1,000 ML IV SCH (23:49)
[2018-10-10 23:53] VITALS: BP 114/77
[2018-10-11] MEDS: morphine SULFATE 10 MG/ML, 1ML IVPush PRN ×10 (00:12→23:30)
[2018-10-11] MEDS ORDERED: MORPHINE SULFATE 4 MG/ML, 1ML ONE (04:27)
[2018-10-11 05:00] LABS: BASOPHILS # (AUTO) 0.09 x10^3/uL (0-0.1); BASOPHILS % (AUTO) 1 % (0-1); EOSINOPHILS # (AUTO) 0.09 x10^3/uL (0-0.4); EOSINOPHILS % (AUTO) 1 % (1-7); LYMPHOCYTES # (AUTO) 2.75 x10^3/uL (1-3.4); LYMPHOCYTES % (AUTO) 33 % (22-44); MD NO; MEAN CORPUSCULAR HEMOGLOBIN 27.2 pg (27.0-34.8); MEAN CORPUSCULAR HGB CONC 31.8 g/dL (32.4-35.8); MEAN CORPUSCULAR VOLUME 85.4 fL (80-100); MEAN PLATELET VOLUME 10.9 fL (7.4-10.4); MONOCYTES % (AUTO) 10 % (2-9); NEUTROPHILS # (AUTO) 4.67 x10^3/uL (1.8-6.8); NEUTROPHILS % (AUTO) 56 % (42-75); PLATELET COUNT 210 x10^3/uL (130-400); RED BLOOD COUNT 4.29 x10^6/uL (3.82-5.3); RED CELL DISTRIBUTION WIDTH 16.2 % (9.6-15.2)
[2018-10-11 05:12] LABS: CHLORIDE 104 mmol/L (98-107)
[2018-10-11 05:19] LABS: ALANINE AMINOTRANSFERASE 24 U/L (12-78); ALBUMIN 3.7 g/dL (3.4-5.0); ALKALINE PHOSPHATASE 102 U/L (45-117); ANION GAP 8 mmol/L (5-15); BILIRUBIN,TOTAL 0.7 mg/dL (0.2-1.0); CALCIUM 8.6 mg/dL (8.5-10.1); CREATININE 0.75 mg/dL (0.55-1.02); TOTAL PROTEIN 7.3 g/dL (6.4-8.2)
[2018-10-11] MEDS: KETOROLAC 30 MG/1 ML IV PRN ×3 (05:45→21:20)
[2018-10-11 07:25] VITALS: BP 115/74
[2018-10-11] MEDS: NS + 20MEQ KCL 1,000 ML IV SCH (07:30)
[2018-10-11] MEDS ORDERED: GLUCAGON 1 MG IM PRN (08:00)
[2018-10-11] MEDS ORDERED: DEXTROSE 50%, 50ML SYRINGE IVPush PRN (08:00)
[2018-10-11] MEDS ORDERED: DEXTROSE 4 GM TAB.CHEW PO PRN (08:00)
[2018-10-11] MEDS: D5%-0.45NACL+KCL 20MEQ 1,000 ML IV SCH ×2 (08:10→16:55)
[2018-10-11] MEDS: SODIUM CHLORIDE FLUSH 10ML SYR IVF SCH ×2 (08:10→21:00)
[2018-10-11] MEDS: ONDANSETRON 2MG/ML, 2ML IVPush PRN ×3 (08:10→23:30)
[2018-10-11] MEDS: BISACODYL 10 MG SUPP PR SCH (08:17)
[2018-10-11] MEDS ORDERED: NICOTINE 7 MG/24 HR PATCH.TD24 ONE (11:59)
[2018-10-11] MEDS: NICOTINE 7 MG/24 HR PATCH.TD24 TD SCH (12:07)
[2018-10-11 13:40] VITALS: BP 120/78
[2018-10-11 20:02] VITALS: BP 135/89
[2018-10-11] MEDS: CEFTRIAXONE PMX 1GM/50ML 50 ML IV SCH (23:30)
[2018-10-12 02:33] VITALS: BP 132/90
[2018-10-12] MEDS: morphine SULFATE 10 MG/ML, 1ML IVPush PRN ×7 (02:38→22:32)
[2018-10-12] MEDS: D5%-0.45NACL+KCL 20MEQ 1,000 ML IV SCH ×2 (03:32→16:01)
[2018-10-12] MEDS: KETOROLAC 30 MG/1 ML IV PRN ×2 (03:38→16:32)
[2018-10-12 04:59] LABS: ALBUMIN 3.2 g/dL (3.4-5.0); ANION GAP 6 mmol/L (5-15); CALCIUM 7.9 mg/dL (8.5-10.1); CHLORIDE 105 mmol/L (98-107)
[2018-10-12 05:04] LABS: ALANINE AMINOTRANSFERASE 24 U/L (12-78); ALKALINE PHOSPHATASE 90 U/L (45-117); BILIRUBIN,TOTAL 0.5 mg/dL (0.2-1.0); CREATININE 0.65 mg/dL (0.55-1.02); TOTAL PROTEIN 6.5 g/dL (6.4-8.2)
[2018-10-12] MEDS: ONDANSETRON 2MG/ML, 2ML IVPush PRN ×2 (06:21→12:59)
[2018-10-12] MEDS ORDERED: POTASSIUM CHLORIDE 40 MEQ in SODIUM CHLORIDE 0.9% 500 ML IV ONE (07:30)
[2018-10-12] MEDS: HEPARIN 5,000 UNITS/ML, 1ML SQ SCH ×3 (07:56→23:40)
[2018-10-12] MEDS: SODIUM CHLORIDE FLUSH 10ML SYR IVF SCH ×2 (07:57→22:31)
[2018-10-12] MEDS: BISACODYL 10 MG SUPP PR SCH (07:57)
[2018-10-12 08:08] VITALS: BP 126/77
[2018-10-12] MEDS: NICOTINE 7 MG/24 HR PATCH.TD24 TD SCH (11:55)
[2018-10-12 13:16] VITALS: BP 123/79
[2018-10-12] MEDS ORDERED: FAMOTIDINE 20 MG/2 ML IVPush SCH (19:30)
[2018-10-12] MEDS: FAMOTIDINE 20 MG/2 ML IVPush SCH (19:32)
[2018-10-12 20:35] VITALS: BP 129/88
[2018-10-12] MEDS ORDERED: MORPHINE SULFATE 4 MG/ML, 1ML ONE (22:27)
[2018-10-12] MEDS: CEFTRIAXONE PMX 1GM/50ML 50 ML IV SCH (23:39)
[2018-10-13] MEDS ORDERED: MORPHINE SULFATE 4 MG/ML, 1ML ONE ×2 (02:18→06:28)
[2018-10-13] MEDS: morphine SULFATE 10 MG/ML, 1ML IVPush PRN ×3 (02:21→09:33)
[2018-10-13] MEDS: D5%-0.45NACL+KCL 20MEQ 1,000 ML IV SCH (02:22)
[2018-10-13 02:23] VITALS: BP 127/88
[2018-10-13 05:18] LABS: ANION GAP 5 mmol/L (5-15); CALCIUM 8.2 mg/dL (8.5-10.1); CHLORIDE 106 mmol/L (98-107)
[2018-10-13 05:20] LABS: CREATININE 0.64 mg/dL (0.55-1.02)
[2018-10-13] MEDS: HEPARIN 5,000 UNITS/ML, 1ML SQ SCH ×3 (07:30→23:21)
[2018-10-13 07:48] VITALS: BP 117/76
[2018-10-13] MEDS: FAMOTIDINE 20 MG/2 ML IVPush SCH (08:16)
[2018-10-13] MEDS: SODIUM CHLORIDE FLUSH 10ML SYR IVF SCH ×2 (08:18→20:47)
[2018-10-13] MEDS: BISACODYL 10 MG SUPP PR SCH (08:18)
[2018-10-13] MEDS ORDERED: D5%-0.45NACL+KCL 20MEQ 1,000 ML IV SCH (10:00)
[2018-10-13] MEDS: OXYcodone IR 5MG TABLET PO PRN ×2 (12:18→18:19)
[2018-10-13] MEDS: NICOTINE 7 MG/24 HR PATCH.TD24 TD SCH (12:20)
[2018-10-13 13:08] VITALS: BP 102/65
[2018-10-13] MEDS: KETOROLAC 30 MG/1 ML IV PRN ×2 (14:38→21:21)
[2018-10-13] MEDS: OMEPRAZOLE 20 MG CAPSULE.DR PO SCH (15:11)
[2018-10-13] MEDS: MORPHINE SULFATE 4 MG/ML, 1ML IVPush PRN ×2 (15:11→20:47)
[2018-10-13 19:58] VITALS: BP 109/70
[2018-10-13] MEDS: CEFDINIR 300 MG CAPSULE PO SCH (20:46)
[2018-10-14 00:54] VITALS: BP 111/76
[2018-10-14] MEDS: OXYcodone IR 5MG TABLET PO PRN ×2 (01:29→08:27)
[2018-10-14] MEDS: MORPHINE SULFATE 4 MG/ML, 1ML IVPush PRN (03:08)
[2018-10-14] MEDS: OMEPRAZOLE 20 MG CAPSULE.DR PO SCH (06:00)
[2018-10-14] MEDS: KETOROLAC 30 MG/1 ML IV PRN (06:00)
[2018-10-14 06:41] LABS: ANION GAP 5 mmol/L (5-15); CALCIUM 8.5 mg/dL (8.5-10.1); CHLORIDE 108 mmol/L (98-107)
[2018-10-14 06:43] LABS: CREATININE 0.59 mg/dL (0.55-1.02)
[2018-10-14 07:11] VITALS: BP 103/67
[2018-10-14] MEDS: BISACODYL 10 MG SUPP PR SCH (08:18)
[2018-10-14] MEDS: CEFDINIR 300 MG CAPSULE PO SCH (08:27)
[2018-10-14] MEDS: SODIUM CHLORIDE FLUSH 10ML SYR IVF SCH (08:28)
[2018-10-14] MEDS ORDERED: CEFD300C37 PO (10:26)
[2018-10-14] MEDS ORDERED: OMEP-110 PO (10:26)
== END 2018-10-14 11:35 | disposition home or self-care (01) | DRG 389 ==
LOC: ED 22:41 → EDIP 22:52 → 3NW 23:21 → DCLOUNGE 10-14 11:34
PROVIDERS: ADMIT Family Medicine; ATTEND Family Medicine
PROC: 0D9670Z Drainage of Stomach with Drainage Device, Via Natural or Artificial Opening (ICD-10-PCS; principal; 2018-10-10)
DX: K56.51 Intestinal adhesions [bands], with partial obstruction (principal); N39.0 Urinary tract infection, site not specified; E87.6 Hypokalemia; E16.2 Hypoglycemia, unspecified; R00.0 Tachycardia, unspecified; Z90.49 Acquired absence of other specified parts of digestive tract; Z88.6 Allergy status to analgesic agent; Z90.81 Acquired absence of spleen; Z72.89 Other problems related to lifestyle; Z87.891 Personal history of nicotine dependence; Z88.5 Allergy status to narcotic agent
CPT/HCPCS: 36415; 74018; 74021; 74250; J3490; 80048; 80053; 81001; 82962; 83690; 83735; 84100; 84703; 85025; 87086; 96374; 96375; G0378; J0696; J1644; J1885; J2405; J3480; J2270; J7040

== ENCOUNTER 2019-04-08 17:45 | Emergency (ER) | payer OTHER ==
[~2019-04-08] VITALS: Ht 162.6 cm; Wt 65.0 kg
[~2019-04-08 17:45] MED LIST changes: +CEFD300C37 PO; +OMEP-110 PO
--- NOTE | 2019-04-08 18:09 | NUR ---
PATIENT BROUGHT BACK FROM [facility] WITH CHIEF COMPLAINT OF ABD PAIN WITH N/V FOR 5 DAYS. PATIENTS STATES IT FEELS SIMILAR TO PREVIOUS "GI BLOCKAGES". THE PATIENT IS ALERT, ORIENTED, WARM AND DRY.
[2019-04-08] MEDS ORDERED: ONDANSETRON 2MG/ML, 2ML IVPush ONE (18:30)
[2019-04-08] MEDS ORDERED: LORazepam 2 MG/ML, 1ML IVPush ONE (18:30)
[2019-04-08] MEDS ORDERED: MORPHINE SULFATE 4 MG/ML, 1ML IVPush PRN (18:30)
[2019-04-08] MEDS ORDERED: PROMETHAZINE 25 MG/ML, 1ML IM ONE (18:30)
[2019-04-08] MEDS ORDERED: SODIUM CHLORIDE FLUSH 10ML SYR IVF ONE (18:30)
[2019-04-08] MEDS ORDERED: ONDANSETRON 2MG/ML, 2ML ONE (18:43)
[2019-04-08] MEDS ORDERED: MORPHINE SULFATE 4 MG/ML, 1ML ONE (18:43)
[2019-04-08] MEDS ORDERED: LORazepam 2 MG/ML, 1ML ONE (18:44)
[2019-04-08 18:52] LABS: ALANINE AMINOTRANSFERASE 42 U/L (12-78); ALBUMIN 3.9 g/dL (3.4-5.0); ANION GAP 9 mmol/L (5-15); CALCIUM 8.8 mg/dL (8.5-10.1); CHLORIDE 106 mmol/L (98-107); CREATININE 0.72 mg/dL (0.55-1.02)
[2019-04-08 18:53] LABS: MICROSCOPIC INDICATED
[2019-04-08 18:57] LABS: ALKALINE PHOSPHATASE 91 U/L (45-117); BILIRUBIN,TOTAL 0.4 mg/dL (0.2-1.0); TOTAL PROTEIN 8.5 g/dL (6.4-8.2)
[2019-04-08 19:06] LABS: MEAN CORPUSCULAR HEMOGLOBIN 28.2 pg (27.0-34.8); MEAN CORPUSCULAR VOLUME 88.1 fL (80-100); MEAN PLATELET VOLUME 10.2 fL (7.4-10.4); PLATELET COUNT 187 x10^3/uL (130-400); RED BLOOD COUNT 4.92 x10^6/uL (3.82-5.3)
[2019-04-08 19:07] LABS: MD YES
[2019-04-08 19:09] LABS: CULTURE INDICATED? YES
[2019-04-08 19:09] LABS: ANISOCYTOSIS 1+; EOS#(MANUAL) 0.09 x10^3/uL (0.0-0.4); EOS% (MANUAL) 2 % (1-7); LYMPH#(MANUAL) 1.98 x10^3/uL (1-3.4); LYMPHS% (MANUAL) 46 % (22-44); MONOS#(MANUAL) 0.26 x10^3/uL (0.3-2.7); MONOS% (MANUAL) 6 % (2-9); REACTIVE LYMPHS # (MANUAL) 0.09 x10^3/uL (0-0); REACTIVE LYMPHS % (MANUAL) 2 % (0-0); SEG#(MANUAL) 1.89 x10^3/uL (1.8-6.8); SEGS% (MANUAL) 44 % (42-75)
[2019-04-08 19:10] LABS: OVALOCYTES 1+; POLYCHROMASIA 1+; TARGET CELLS 1+
--- NOTE | 2019-04-08 19:10 | NUR ---
REPORT FROM EBER BENITEZ LEFT PIV PLACED WITH US TO LEFT FOREARM. PATIENT THEN MEDICATED WITH MORPHINE/ATIVAN/ZOFRAN/1L NS (PHENERGAN HELD BY TOP DYEING MACHINE TENDER AFTER COMMUNICATION OF TOO MANY SEDATING MEDICATIONS TO PROVIDER)-PROVIDER AGREEABLE HR 123 (ETOH WITHDRAWAL/PAIN/DEHYDRATION FROM VOMITING), 119/83 WILL CONTINUE TO CLOSELY MONITOR
[2019-04-08 19:11] LABS: <PLATELET ESTIMATE> ADEQUATE; LARGE PLATELETS 1+
[2019-04-08] MEDS ORDERED: SODIUM CHLORIDE 0.9% 1,000ML IVBOLUS ONE (19:30)
[2019-04-08 19:56] VITALS: BP 119/93
[2019-04-08] MEDS ORDERED: DIAZEPAM 5 MG TABLET PO ONE (20:00)
--- NOTE | 2019-04-08 20:00 | NUR ---
1L NS COMPLETE REPORTS PAIN IMPROVED FROM 8- 4 HR RATE IMPROVED TO 105 pROVIDER TO BEDSIDE TO EXPLAIN POC (D/C SHORTLY AFTER FURTHER ETOH DETOX RX)
[2019-04-08] MEDS ORDERED: PROMETHAZINE 25 MG/ML, 1ML ONE (20:04)
[2019-04-08] MEDS ORDERED: DIAZEPAM 5 MG TABLET ONE (20:04)
--- NOTE | 2019-04-08 20:19 | NUR ---
MEDICATED PER EMAR (CINDER BLOCK MASON/PROVIDER DECIDED TO ADMIN PHENERGAN PATIENT WITH CONTINUED NAUSEA/NOT SEDATED AT ALL. ALERT/ORIENTED/WALKING AROUND) SIGNIFICANT OTHER AT BEDSIDE-TO TAKE PATIENT HOME
--- NOTE | 2019-04-08 20:42 | NUR ---
POST RE-MEDICATION PATIENT SAFE FOR D/C IN CARE OF SIGNIFICANT OTHER PROVIDED WITH LIST OF DETOX RESOURCES IN [place]OWN ASKED PROVIDER IF ETOH WEANING MEDICATIONS APPROPRIATE-PROVIDER DEFERRED
== END 2019-04-08 20:45 | disposition home or self-care (01) ==
LOC: ED 19:32
DX: R10.84 Generalized abdominal pain (principal); R11.2 Nausea with vomiting, unspecified; F10.220 Alcohol dependence with intoxication, uncomplicated; R00.0 Tachycardia, unspecified; Y90.0 Blood alcohol level of less than 20 mg/100 ml; F17.200 Nicotine dependence, unspecified, uncomplicated; Z86.19 Personal history of other infectious and parasitic diseases; Z90.49 Acquired absence of other specified parts of digestive tract
CPT/HCPCS: 36415; 74022; 80053; 80307; 81001; 83690; 84703; 85025; 87086; 93005; 96361; 96372; 96374; 96375; 99284; J2060; J2270; J2405; J2550; J7030

== ENCOUNTER 2019-10-09 15:29 | Emergency (ER) | payer SELFPAY ==
[~2019-10-09] VITALS: Ht 162.6 cm; Wt 67.5 kg
[2019-10-09] MEDS ORDERED: PLEASE ENTER HEIGHT AND WEIGHT MC SCH (16:00)
[2019-10-09] MEDS ORDERED: DIPH,PERTUSS(ACELL),TET VAC/PF 0.5 ML IM-VACC ONE ×3 (16:00→17:17)
[2019-10-09] MEDS ORDERED: SODIUM CHLORIDE FLUSH 10ML SYR IVF ONE (16:00)
[2019-10-09 16:07] LABS: MICROSCOPIC INDICATED
[2019-10-09 16:09] VITALS: BP 134/94
[2019-10-09 16:13] LABS: AMPHETAMINE SCREEN, URINE Negative (Negative); BARBITURATE SCREEN, URINE Negative (Negative); BENZODIAZEPINE SCREEN, URINE Negative (Negative); CANNABINOID SCREEN, URINE Negative (Negative); COCAINE SCREEN, URINE Negative (Negative); METHADONE SCREEN, URINE Negative (Negative); OPIATE SCREEN, URINE Negative (Negative)
[2019-10-09] MEDS ORDERED: ACETAMINOPHEN 325 MG TABLET ONE (16:18)
[2019-10-09 16:26] LABS: ANION GAP 8 mmol/L (5-15); CALCIUM 8.4 mg/dL (8.5-10.1); CHLORIDE 108 mmol/L (98-107); SALICYLATE LEVEL 2.7 mg/dL (2.8-20.0)
[2019-10-09 16:29] LABS: ALANINE AMINOTRANSFERASE 137 U/L (12-78); ALKALINE PHOSPHATASE 119 U/L (45-117); BILIRUBIN,TOTAL 0.2 mg/dL (0.2-1.0); CREATININE 0.67 mg/dL (0.55-1.02); TOTAL PROTEIN 8.9 g/dL (6.4-8.2)
[2019-10-09] MEDS ORDERED: ACETAMINOPHEN 325 MG TABLET PO ONE (16:30)
--- NOTE | 2019-10-09 16:30 | NUR ---
BIB EMS FOR LAC ON LEFT FOREARM AND POSSIBLE SI, WHICH PATIENT DENIES. PT STATES THAT SHE TRIPPED AND FELL ONTO NIGHTSTAND AND SUSTAINED LAC TO WRIST. PER [facility], PATIENT'S FIANCE STATED THAT SHE CUT HERSELF WITH A BROKEN SHAVER. PT ARRIVES WITH S/S ETOH INTOXICATION AND STATES THAT SHE IS AN ALCOHOLIC AND RELAPSED. PT STATES THAT SHE DRANK THREE TALL CHELADAS TODAY.
[2019-10-09 16:31] LABS: MEAN CORPUSCULAR HEMOGLOBIN 29.5 pg (27.0-34.8); MEAN CORPUSCULAR HGB CONC 32.3 g/dL (32.4-35.8); MEAN CORPUSCULAR VOLUME 91.1 fL (80-100); MEAN PLATELET VOLUME 10.6 fL (7.4-10.4); PLATELET COUNT 302 x10^3/uL (130-400); RED BLOOD COUNT 4.97 x10^6/uL (3.82-5.3)
[2019-10-09 16:49] LABS: MD YES
[2019-10-09] MEDS ORDERED: MORPHINE SULFATE 4 MG/ML, 1ML IVPush PRN (17:00)
[2019-10-09] MEDS ORDERED: SODIUM CHLORIDE 0.9% 1,000ML IVBOLUS ONE (17:00)
[2019-10-09 17:01] LABS: ANISOCYTOSIS 1+; BAND#(MANUAL) 0.13 x10^3/uL; BANDS%(MANUAL) 2 % (0-7); BASOS#(MANUAL) 0.13 x10^3/uL (0-0.1); BASOS% (MANUAL) 2 % (0-1); LYMPH#(MANUAL) 2.18 x10^3/uL (1-3.4); LYMPHS% (MANUAL) 33 % (22-44); MONOS#(MANUAL) 0.79 x10^3/uL (0.3-2.7); MONOS% (MANUAL) 12 % (2-9); SEG#(MANUAL) 3.37 x10^3/uL (1.8-6.8); SEGS% (MANUAL) 51 % (42-75)
[2019-10-09 17:04] LABS: <PLATELET ESTIMATE> ADEQUATE; LARGE PLATELETS 1+
[2019-10-09] MEDS ORDERED: MORPHINE SULFATE 4 MG/ML, 1ML ONE ×3 (17:15→19:30)
[2019-10-09] MEDS: MORPHINE SULFATE 4 MG/ML, 1ML IVPush PRN ×2 (17:29→19:32)
[2019-10-09] MEDS ORDERED: OMNIPAQUE 350 MG/ML, 100ML BOTTLE ONE (18:00)
--- NOTE | 2019-10-09 19:10 | NUR ---
REPORT FROM ADELAIDE BENITEZ, ASSUMING CARE OF PT. PT UP TO RESTROOM W/ STEADY GAIT. SITTER REMAINS IN HALLWAY FOR SAFETY AND MONITORING
--- NOTE | 2019-10-09 19:35 | NUR ---
PT MEDICATED PER JUL FOR PAIN, REEdd REYES TO SPEAK WITH HER ABOUT GOING HOME
--- NOTE | 2019-10-09 20:17 | NUR ---
PA AT BEDSIDE TO REASSESS PT, PT VERY CLEAR THAT SHE DOES NOT WANT TO HARM HERSELF OR ANYONE ELSE, PT CONTINUES TO STATE HER EX CALLED BECAUSE HE WAS ANGRY. PT FEELS SAFE TO GO HOME AT THIS TIME AND IS ABLE TO AMBULATE WITH A STEADY GAIT
[2019-10-09] MEDS ORDERED: LORazepam 2 MG/ML, 1ML ONE (20:41)
--- NOTE | 2019-10-09 20:55 | NUR ---
TASK RN: Patient given discharge instructions and they have confirmed that they understand the instructions. Patient ambulatory with steady gait.
== END 2019-10-09 20:57 | disposition home or self-care (01) ==
LOC: ED 20:41
DX: S61.512A Laceration without foreign body of left wrist, initial encounter (principal); R10.84 Generalized abdominal pain; R00.0 Tachycardia, unspecified; R19.7 Diarrhea, unspecified; F10.120 Alcohol abuse with intoxication, uncomplicated; Z90.89 Acquired absence of other organs; Z90.49 Acquired absence of other specified parts of digestive tract; Z90.81 Acquired absence of spleen; Z90.721 Acquired absence of ovaries, unilateral; W26.8XXA Contact with other sharp object(s), not elsewhere classified, initial encounter; Y93.89 Activity, other specified; Y92.098 Other place in other non-institutional residence as the place of occurrence of the external cause; Y99.8 Other external cause status; Y90.0 Blood alcohol level of less than 20 mg/100 ml
CPT/HCPCS: 36415; 74021; 74177; 80053; 80307; 81001; 83690; 84703; 85025; 90471; 90715; 96361; 96374; 99285; J2270; J7030; Q9967

== ENCOUNTER 2020-02-06 06:50 | Emergency (ER) | payer MEDICAID ==
[~2020-02-06] VITALS: Ht 162.6 cm; Wt 63.4 kg
--- NOTE | 2020-02-06 07:11 | NUR ---
PT AMBULATING TO BR WITH STEADY GAIT. URINE CUP PROVIDED.
[2020-02-06] MEDS ORDERED: THIAMINE 100 MG in SODIUM CHLORIDE 0.9% 50 ML IVPB ONE (07:30)
[2020-02-06] MEDS ORDERED: SODIUM CHLORIDE 0.9% 1,000ML IVBOLUS ONE (07:30)
[2020-02-06] MEDS ORDERED: MORPHINE SULFATE 4 MG/ML, 1ML IVPush PRN (07:30)
[2020-02-06] MEDS ORDERED: ONDANSETRON 2MG/ML, 2ML IVPush ONE (07:30)
[2020-02-06] MEDS ORDERED: ONDANSETRON 2MG/ML, 2ML ONE (07:37)
[2020-02-06] MEDS ORDERED: MORPHINE SULFATE 4 MG/ML, 1ML ONE ×2 (07:38→08:59)
[2020-02-06] MEDS ORDERED: LORazepam 2 MG/ML, 1ML ONE ×2 (07:38→10:24)
[2020-02-06] MEDS: LORazepam 2 MG/ML, 1ML IVPush PRN ×2 (07:43→08:51)
--- NOTE | 2020-02-06 07:45 | NUR ---
IV PLACED, LABS DRAWN WITH START. NS BOLUS AND MEDS GIVEN PER ERP ORDER. URINE COLLECTED/SENT TO LAB. EKG COMPLETED AT BS. PT PLACED ON ALL ROOM MONITORING. VS UPDATED IN COMPUTER. PT PROVIDED BENZOCAINE SWABS FOR MOUTH PAIN. PT RATES MOUTH/FACE AND GENERALIZED LOW ABD PAIN AT "12"/10. PT UPDATED ON POC, LIGHTS DIMMED PER REQUEST, CALL LIGHT PROVIDED.
[2020-02-06 07:46] LABS: ALANINE AMINOTRANSFERASE 94 U/L (12-78); ALBUMIN 4.2 g/dL (3.4-5.0); ANION GAP 14 mmol/L (5-15); CALCIUM 8.7 mg/dL (8.5-10.1); CHLORIDE 102 mmol/L (98-107); CREATININE 0.72 mg/dL (0.55-1.02)
[2020-02-06 07:49] LABS: ALKALINE PHOSPHATASE 94 U/L (45-117); BILIRUBIN,TOTAL 0.5 mg/dL (0.2-1.0); TOTAL PROTEIN 8.9 g/dL (6.4-8.2)
[2020-02-06 07:57] LABS: MD YES; MEAN CORPUSCULAR HEMOGLOBIN 29.5 pg (27.0-34.8); MEAN CORPUSCULAR HGB CONC 32.4 g/dL (32.4-35.8); MEAN CORPUSCULAR VOLUME 90.8 fL (80-100); MEAN PLATELET VOLUME 11.2 fL (7.4-10.4); PLATELET COUNT 100 x10^3/uL (130-400); RED BLOOD COUNT 5.17 x10^6/uL (3.82-5.3); RED CELL DISTRIBUTION WIDTH 13.6 % (9.6-15.2)
[2020-02-06 07:59] LABS: BAND#(MANUAL) 0.04 x10^3/uL; BANDS%(MANUAL) 1 % (0-7); BASOS#(MANUAL) 0.07 x10^3/uL (0-0.1); BASOS% (MANUAL) 2 % (0-1); LYMPH#(MANUAL) 1.48 x10^3/uL (1-3.4); LYMPHS% (MANUAL) 40 % (22-44); MONOS#(MANUAL) 0.22 x10^3/uL (0.3-2.7); MONOS% (MANUAL) 6 % (2-9); SEG#(MANUAL) 1.89 x10^3/uL (1.8-6.8); SEGS% (MANUAL) 51 % (42-75)
--- NOTE | 2020-02-06 07:59 | NUR ---
PT TO IMAGING
[2020-02-06 08:00] LABS: <PLATELET ESTIMATE> DECREASED; HOWELL-JOLLY BODIES 1+; LARGE PLATELETS 1+
[2020-02-06 08:08] LABS: MICROSCOPIC AUTO
[2020-02-06] MEDS ORDERED: OMNIPAQUE 350 MG/ML, 100ML BOTTLE ONE (08:15)
--- NOTE | 2020-02-06 08:45 | NUR ---
PT BACK FROM CT. PT REMINDED TO KEEP ARM STRAIGHT, HAS NOT RECEIVED IVF BOLUS D/T ARM BEING BENT. PT HAS TO BE REMINDED SEVERAL TIMES, WILL CONTINUE TO MONITOR AND PUT ARM BOARD ON IF NEEDED.
--- NOTE | 2020-02-06 09:12 | NUR ---
2ND DOSE OF MORPHINE AND ATIVAN GIVEN FOR PT C/O SHAKINESS AND PAIN DOWN FROM 04/27 TO 02/25. UNABLE TO DOCUMENT MORPHINE 2ND DOSE ON EMAR-NOT ALLOWING D/T PT STATUS FOR DISCHARGE SOON.
--- NOTE | 2020-02-06 09:35 | NUR ---
ARM BOARD PLACED, IVF INFUSING.
--- NOTE | 2020-02-06 10:19 | NUR ---
PT UP TO BR AGAIN, IV AND ARM BOARD REPLACED, IV WIDE OPEN. PT REQUESTING MORE PAIN MEDS, ERP NOTIFIED.
--- NOTE | 2020-02-06 10:28 | NUR ---
3RD DOSE ATIVAN GIVEN. PER PT, SHAKINESS COMING BACK. VS UPDATED IN COMPUTER, ERP NOTIFIED. PT CALLING FOR RIDE HOME.
[2020-02-06 10:29] VITALS: BP 129/86
== END 2020-02-06 10:53 | disposition home or self-care (01) ==
LOC: ED 09:08
DX: S02.5XXA Fracture of tooth (traumatic), initial encounter for closed fracture (principal); S00.531A Contusion of lip, initial encounter; R10.84 Generalized abdominal pain; R00.0 Tachycardia, unspecified; F10.220 Alcohol dependence with intoxication, uncomplicated; W18.30XA Fall on same level, unspecified, initial encounter; Y93.89 Activity, other specified; Y92.009 Unspecified place in unspecified non-institutional (private) residence as the place of occurrence of the external cause; Y99.8 Other external cause status
CPT/HCPCS: 36415; 70450; 70486; 74177; 80053; 80307; 81001; 83690; 84703; 85025; 87086; 93005; 96361; 96365; 96366; 96375; 96376; 99285; J2060; J2270; J2405; J3411; J7030; Q9967

== ENCOUNTER 2020-02-09 01:57 | Emergency (ER) | payer MEDICAID, OTHER ==
[~2020-02-09] VITALS: Ht 162.6 cm; Wt 65.0 kg
--- NOTE | 2020-02-09 02:40 | NUR ---
late entry d/t pt care: pt came into ed via [facility] due to wanting to sober up. Pt states she drinks daily and has had withdraw multiple times. Appears anxious, gross neuro intact. states she hasnt drank in four days but took a bunch of vicodin. Pt nad, tachy on monitor. pt placed on spo2/bp/ecg monitoring
[2020-02-09] MEDS ORDERED: SODIUM CHLORIDE 0.9% 1,000ML IVBOLUS ONE (03:00)
[2020-02-09] MEDS ORDERED: LORazepam 2 MG/ML, 1ML IVPush ONE ×2 (03:00→04:30)
[2020-02-09] MEDS ORDERED: SODIUM CHLORIDE FLUSH 10ML SYR IVF ONE (03:00)
[2020-02-09] MEDS ORDERED: LORazepam 2 MG/ML, 1ML ONE ×2 (03:02→04:18)
[2020-02-09 03:06] LABS: ALANINE AMINOTRANSFERASE 105 U/L (12-78); ANION GAP 7 mmol/L (5-15); CALCIUM 10.1 mg/dL (8.5-10.1); CHLORIDE 104 mmol/L (98-107); CREATININE 0.72 mg/dL (0.55-1.02)
[2020-02-09 03:10] LABS: ALKALINE PHOSPHATASE 84 U/L (45-117); BILIRUBIN,TOTAL 0.8 mg/dL (0.2-1.0); TOTAL PROTEIN 8.4 g/dL (6.4-8.2)
--- NOTE | 2020-02-09 03:26 | NUR ---
pt medicated per mar, nad, appears more comfortable, denies additional needs, wctm.
[2020-02-09 03:29] LABS: MD YES; MEAN CORPUSCULAR HEMOGLOBIN 29.7 pg (27.0-34.8); MEAN PLATELET VOLUME 11.8 fL (7.4-10.4); PLATELET COUNT 58 x10^3/uL (130-400); RED BLOOD COUNT 4.57 x10^6/uL (3.82-5.3); RED CELL DISTRIBUTION WIDTH 13.6 % (9.6-15.2)
[2020-02-09 03:31] LABS: EOS#(MANUAL) 0.12 x10^3/uL (0.0-0.4); EOS% (MANUAL) 2 % (1-7); LYMPH#(MANUAL) 1.74 x10^3/uL (1-3.4); LYMPHS% (MANUAL) 28 % (22-44); MONOS#(MANUAL) 0.25 x10^3/uL (0.3-2.7); MONOS% (MANUAL) 4 % (2-9); SEG#(MANUAL) 4.09 x10^3/uL (1.8-6.8); SEGS% (MANUAL) 66 % (42-75)
[2020-02-09 03:32] LABS: <PLATELET ESTIMATE> DECREASED; LARGE PLATELETS 1+; OVALOCYTES 1+; TARGET CELLS 1+
[2020-02-09 04:22] VITALS: BP 143/96
--- NOTE | 2020-02-09 04:47 | NUR ---
PT RESTING IN [facility], CALLING CLINICS FOR OUTPATIENT SERVICES FOR ALCOHOL ADDICTION. WCTM. WAITING FOR DC SAFELY.
--- NOTE | 2020-02-09 05:03 | NUR ---
PT AMBULATED TO AND FROM RESTROOM WITH A SMOOTH AND STEADY GAIT, NAD, GIVEN DC PAPER WORK AND VERBALIZES UNDERSTANDING, STATES HER RIDE IS COMING BUT WONT BE HERE FOR ABOUT AN HOUR. PT INFORMED SHE IS MORE THAN WELCOME TO WAIT IN OUR LOBBY UNTIL RIDE ARRIVES. DENIES ADDITIONAL QUESTIONS OR NEEDS AT THIS TIME.
== END 2020-02-09 05:13 ==
LOC: ED 05:07
DX: F41.1 Generalized anxiety disorder (principal); D69.6 Thrombocytopenia, unspecified; R94.5 Abnormal results of liver function studies; R00.0 Tachycardia, unspecified; R11.0 Nausea; Z72.9 Problem related to lifestyle, unspecified
CPT/HCPCS: 36415; 80053; 80307; 84703; 85025; 93005; 96361; 96374; 96376; 99284; J2060; J7030

== ENCOUNTER 2020-03-28 11:05 | Emergency (ER) | payer MEDICAID ==
[~2020-03-28] VITALS: Ht 162.6 cm; Wt 67.0 kg
[2020-03-28 12:04] LABS: BASOPHILS % (AUTO) 2 % (0-1); EOSINOPHILS % (AUTO) 1 % (1-7); LYMPHOCYTES % (AUTO) 35 % (22-44); MEAN CORPUSCULAR HEMOGLOBIN 29.2 pg (27.0-34.8); MEAN CORPUSCULAR HGB CONC 32.5 g/dL (32.4-35.8); MEAN PLATELET VOLUME 10.2 fL (7.4-10.4); MONOCYTES % (AUTO) 12 % (2-9); NEUTROPHILS % (AUTO) 50 % (42-75); PLATELET COUNT 298 x10^3/uL (130-400); RED BLOOD COUNT 4.92 x10^6/uL (3.82-5.3); RED CELL DISTRIBUTION WIDTH 13.7 % (9.6-15.2)
--- NOTE | 2020-03-28 12:05 | NUR ---
XRAY DELAY FOR BETA RES.
--- NOTE | 2020-03-28 12:15 | NUR ---
pt to room from lobby
[2020-03-28 12:21] LABS: ALBUMIN 4.2 g/dL (3.4-5.0); ANION GAP 3 mmol/L (5-15); CALCIUM 8.8 mg/dL (8.5-10.1); CHLORIDE 112 mmol/L (98-107)
[2020-03-28 12:28] LABS: ALANINE AMINOTRANSFERASE 25 U/L (12-78); ALKALINE PHOSPHATASE 64 U/L (45-117); BILIRUBIN,TOTAL 0.3 mg/dL (0.2-1.0); CREATININE 0.75 mg/dL (0.55-1.02); TOTAL PROTEIN 8.8 g/dL (6.4-8.2)
--- NOTE | 2020-03-28 12:30 | NUR ---
PT PRESENTS TO ED WITH C/O GENERALIZED ABD PAIN, NAUSEA AND COUGH X 1 DAY. PT WAS TACHYCARDIC IN TRIAGE, STATES "LEOPOLDO BEEN TOLD I MIGHT HAVE DAVID" . PT ATTACHED TO ALL MONITORS, PT A&O, RESPS EVEN AND UNLABORED, CALL LIGHT IN REACH. PT INSTRUCTED TO PROVIDE CLEAN CATCH UA, COMMODE IN ROOM. SUPPLIES PROVIDED.
[2020-03-28 12:31] LABS: MD SCAN
--- NOTE | 2020-03-28 13:12 | NUR ---
REPORT OF PT FROM ELI MOODY AND ASSUMING CARE OF PT AT THIS TIME. DANK MURRAY, AT BS WITH PT AT THIS TIME.
--- NOTE | 2020-03-28 13:18 | NUR ---
REPORT GIVEN TO ELI ZAPATA AT BEDSIDE.
--- NOTE | 2020-03-28 13:24 | NUR ---
URINE COLLECTED AND SENT TO LAB AT THIS TIME.
[2020-03-28] MEDS ORDERED: SODIUM CHLORIDE 0.9% 1,000ML IVBOLUS ONE (13:30)
[2020-03-28] MEDS ORDERED: ONDANSETRON 2MG/ML, 2ML IVPush ONE (13:30)
[2020-03-28 13:43] LABS: MICROSCOPIC INDICATED
[2020-03-28] MEDS ORDERED: ONDANSETRON 2MG/ML, 2ML ONE (13:44)
[2020-03-28] MEDS ORDERED: MORPHINE SULFATE 4 MG/ML, 1ML ONE ×2 (13:44→15:30)
[2020-03-28] MEDS: MORPHINE SULFATE 4 MG/ML, 1ML IVPush PRN ×2 (13:53→15:39)
--- NOTE | 2020-03-28 13:54 | NUR ---
PT MEDICATED PER MAR AT THIS TIME. PT VSS AND UPDATED IN EMR. PT HAS CALL LIGHT WITHIN REACH.
[2020-03-28] MEDS ORDERED: OMNIPAQUE 350 MG/ML, 100ML BOTTLE ONE (15:32)
--- NOTE | 2020-03-28 15:38 | NUR ---
PT MEDICATED FOR PAIN AT THIS TIME. PT EDUCATED ON NEED TO REMAIN NPO UNTIL CT READ AND VERBALIZES UNDERSTANDING. PT VSS AND UPDATED IN EMR WITH CALL LIGHT WITHIN REACH.
[2020-03-28 16:21] VITALS: BP 115/72
--- NOTE | 2020-03-28 16:21 | NUR ---
pt still vomiting will update md
--- NOTE | 2020-03-28 16:43 | NUR ---
PT GOT AGGRESSIVE WITH STAFF, AND INSTRUCTED ABOUT D/C PLAN. PT UPSET AND REQUESTING MORE PAIN MEDS. PT EDUCATED ON D/C AND THAT ERP NOT PROVIDING ADDITIONAL MEDICATIONS. PT IS BEING GIVEN 5 MINUTES PRIOR TO D/C TO GATHER EMOTIONS AND PROCESS ERP WISHES AT THIS TIME.
--- NOTE | 2020-03-28 17:30 | NUR ---
PT D/C WITH D/C SUMMARY AND SCRIPTS. PIV D/C WITH TIP INTACT. PT AMBULATES TO REGISTRATION DESK WITH STEADY GAIT FOR D/C HOME AND DENIES ANY OTHER NEEDS PERTAINING TO THIS VISIT.
== END 2020-03-28 17:40 | disposition home or self-care (01) ==
LOC: ED 16:50
DX: K52.9 Noninfective gastroenteritis and colitis, unspecified (principal); R10.13 Epigastric pain; R11.2 Nausea with vomiting, unspecified; R05 Cough; R50.9 Fever, unspecified; R00.0 Tachycardia, unspecified; R10.10 Upper abdominal pain, unspecified; Z90.89 Acquired absence of other organs; Z90.49 Acquired absence of other specified parts of digestive tract; Z90.721 Acquired absence of ovaries, unilateral
CPT/HCPCS: 36415; 74021; 74177; 80053; 81001; 83690; 84703; 85025; 87086; 93005; 96361; 96374; 96375; 96376; 99285; J2270; J2405; J7030; Q9967

== ENCOUNTER 2020-04-03 13:35 | Emergency (ER) | payer MEDICAID ==
[~2020-04-03] VITALS: Ht 167.6 cm; Wt 70.5 kg
[2020-04-03] MEDS ORDERED: SODIUM CHLORIDE 0.9% 1,000ML IVBOLUS ONE (14:00)
[2020-04-03 17:23] VITALS: BP 107/73
[2020-04-03] MEDS ORDERED: THIAMINE 100 MG/ML, 2ML ONE (17:29)
--- NOTE | 2020-04-03 17:43 | NUR ---
PT STATING SHE WANTS TO GO HOME. PT SBA TO BSC. PT'S SO CALLED NO ANSWER.
[2020-04-03] MEDS ORDERED: ONDANSETRON 2MG/ML, 2ML ONE (17:56)
[2020-04-03] MEDS ORDERED: ONDANSETRON 2MG/ML, 2ML IVPush ONE (18:00)
[2020-04-04] MEDS ORDERED: THIAMINE 100 MG/ML, 2ML IM SCH (09:00)
== END 2020-04-03 18:07 | disposition home or self-care (01) ==
LOC: ED 17:32
DX: F10.229 Alcohol dependence with intoxication, unspecified (principal); R47.81 Slurred speech; R00.0 Tachycardia, unspecified; Y90.9 Presence of alcohol in blood, level not specified
CPT/HCPCS: 70450; 96361; 96372; 96374; 99285; J2405; J3411; J7030; 99284

== ENCOUNTER 2020-04-08 08:51 | Emergency (ER) | payer MEDICAID ==
[~2020-04-08] VITALS: Ht 162.6 cm; Wt 64.1 kg
--- NOTE | 2020-04-08 09:58 | NUR ---
C/O JAW PAIN, N/V, ABD PAIN, WITHDRAWAL SX. LAST ETOH INTAKE: LAST NOC - 10 BEERS. "I RELAPSED W/ VODKA AND I WAS TRYING TO WEAN MYSELF OFF W/ BEER". LAST FOOD INTAKE: "A COUPLE OF DAYS AGO." STATES SHE FELL A WEEK AGO, LANDED ON CHIN, C/O PAIN TO CHIN AREA. LIMITED JAW MOVEMENT DUE TO PAIN. STATES "I'M GOING TO GET MY TEETH REDONE". SLIGHT LT SIDE FACIAL SWELLING. RESP EVEN & UNLABORED, SPEECH SLIGHTLY SLURRED. VOIDED SPECIMEN IN CUP ON COUNTER: CLOUDY BLOOD TINGED. PT REPORTS IRREG MENSES. NO MED TAKEN FOR PAIN OR N/V.
[2020-04-08] MEDS ORDERED: ONDANSETRON 2MG/ML, 2ML ONE (10:21)
[2020-04-08] MEDS ORDERED: FAMOTIDINE 20 MG/2 ML ONE (10:22)
[2020-04-08] MEDS ORDERED: LORazepam 2 MG/ML, 1ML ONE (10:22)
[2020-04-08 10:30] LABS: BASOPHILS % (AUTO) 1 % (0-1); EOSINOPHILS % (AUTO) 0 % (1-7); LYMPHOCYTES % (AUTO) 8 % (22-44); MEAN CORPUSCULAR HEMOGLOBIN 29.6 pg (27.0-34.8); MEAN PLATELET VOLUME 11.1 fL (7.4-10.4); MONOCYTES % (AUTO) 3 % (2-9); NEUTROPHILS % (AUTO) 89 % (42-75); PLATELET COUNT 137 x10^3/uL (130-400); RED CELL DISTRIBUTION WIDTH 14.1 % (9.6-15.2)
[2020-04-08] MEDS ORDERED: SODIUM CHLORIDE FLUSH 10ML SYR IVF ONE (10:30)
[2020-04-08] MEDS ORDERED: ONDANSETRON 2MG/ML, 2ML IVPush ONE (10:30)
[2020-04-08] MEDS ORDERED: SODIUM CHLORIDE 0.9% 1,000ML IVBOLUS ONE (10:30)
[2020-04-08] MEDS ORDERED: FAMOTIDINE 20 MG/2 ML IVPush ONE (10:30)
[2020-04-08] MEDS ORDERED: LORazepam 2 MG/ML, 1ML IV ONE (10:30)
--- NOTE | 2020-04-08 10:30 | NUR ---
NS BOLUS HUNG. ZOFRN, PEPCID AND ATIVAN GIVEN PER EMAR. PT REQUESTING PAIN MED FOR JAW; WILL NOTIFY ERP. SIDE RAIL UP X1, CALL LIGHT W/IN REACH, WARM BLANKETS PROVIDED, VS MONITORING IN PROGRESS.
[2020-04-08 10:34] LABS: ALBUMIN 4.3 g/dL (3.4-5.0); ANION GAP 13 mmol/L (5-15); CALCIUM 8.9 mg/dL (8.5-10.1); CHLORIDE 99 mmol/L (98-107)
[2020-04-08 10:41] LABS: ALANINE AMINOTRANSFERASE 111 U/L (12-78); ALKALINE PHOSPHATASE 151 U/L (45-117); CREATININE 0.78 mg/dL (0.55-1.02); TOTAL PROTEIN 9.2 g/dL (6.4-8.2)
[2020-04-08 11:19] LABS: MD SCAN
[2020-04-08 11:20] LABS: ACETONE, SERUM Trace (Negative)
[2020-04-08] MEDS ORDERED: MORPHINE SULFATE 4 MG/ML, 1ML ONE (11:24)
[2020-04-08] MEDS ORDERED: PROMETHAZINE 25 MG/ML, 1ML ONE (11:24)
[2020-04-08] MEDS ORDERED: MORPHINE SULFATE 4 MG/ML, 1ML IVPush ONE (11:30)
[2020-04-08] MEDS ORDERED: PROMETHAZINE 25 MG/ML, 1ML IM ONE (11:30)
--- NOTE | 2020-04-08 11:32 | NUR ---
meds per mar, given water for po chlg. as
--- NOTE | 2020-04-08 11:47 | NUR ---
REPORTS DECREASED NAUSEA. HAS HAD SOME SMALL SIPS OF WATER; NO VOMITING.
[2020-04-08 13:37] VITALS: BP 128/76
== END 2020-04-08 13:49 | disposition home or self-care (01) ==
LOC: ED 11:41
DX: K29.20 Alcoholic gastritis without bleeding (principal); F10.139 Alcohol abuse with withdrawal, unspecified; R00.0 Tachycardia, unspecified; Y90.0 Blood alcohol level of less than 20 mg/100 ml; Z90.89 Acquired absence of other organs; Z90.49 Acquired absence of other specified parts of digestive tract; Z90.721 Acquired absence of ovaries, unilateral
CPT/HCPCS: 36415; 70100; 80053; 80307; 82010; 83690; 83735; 84703; 85025; 93005; 96361; 96372; 96374; 96375; 99285; J2060; J2270; J2405; J2550; J7030

== ENCOUNTER 2020-06-01 08:41 | Emergency (ER) | payer MEDICAID ==
[~2020-06-01] VITALS: Ht 162.6 cm; Wt 61.7 kg
--- NOTE | 2020-06-01 09:00 | NUR ---
portable router operator: EKG done in triage
[2020-06-01] MEDS ORDERED: ONDANSETRON 2MG/ML, 2ML ONE (09:28)
[2020-06-01] MEDS ORDERED: MORPHINE SULFATE 4 MG/ML, 1ML ONE (09:28)
[2020-06-01] MEDS ORDERED: SODIUM CHLORIDE 0.9% 1,000ML IVBOLUS ONE (09:30)
[2020-06-01] MEDS ORDERED: SODIUM CHLORIDE FLUSH 10ML SYR IVF ONE (09:30)
[2020-06-01] MEDS ORDERED: MORPHINE SULFATE 4 MG/ML, 1ML IVPush ONE (09:30)
[2020-06-01] MEDS ORDERED: LORazepam 2 MG/ML, 1ML IVPush PRN (09:30)
[2020-06-01] MEDS ORDERED: FAMOTIDINE 20 MG/2 ML IVPush ONE (09:30)
[2020-06-01] MEDS ORDERED: LORazepam 2 MG/ML, 1ML ONE (09:30)
[2020-06-01] MEDS ORDERED: ONDANSETRON 2MG/ML, 2ML IVPush ONE (09:30)
[2020-06-01] MEDS ORDERED: FAMOTIDINE 20 MG/2 ML ONE (09:31)
[2020-06-01 09:36] LABS: BASOPHILS % (AUTO) 1 % (0-1); EOSINOPHILS % (AUTO) 1 % (1-7); LYMPHOCYTES % (AUTO) 26 % (22-44); MEAN CORPUSCULAR HEMOGLOBIN 29.4 pg (27.0-34.8); MEAN CORPUSCULAR HGB CONC 33.9 g/dL (32.4-35.8); MEAN PLATELET VOLUME 10.6 fL (7.4-10.4); MONOCYTES % (AUTO) 8 % (2-9); NEUTROPHILS % (AUTO) 65 % (42-75); PLATELET COUNT 151 x10^3/uL (130-400); RED BLOOD COUNT 5.11 x10^6/uL (3.82-5.3); RED CELL DISTRIBUTION WIDTH 14.4 % (9.6-15.2)
--- NOTE | 2020-06-01 09:41 | NUR ---
PT PLACED ON ALL ROOM MONITORING. PT SINUS TACH 125-145 ON MONITOR. IV PLACED, LABS DRAWN WITH START. NS BOLUS INFUSING, PT MEDICATED PER ERP ORDER. PT REPORTS OF SEIZURE THIS AM, NO INCONTINENCE, TRAUMA, OR INJURY. PT STATES ANXIOUS, "PAIN ALL OVER", TENDER TO RUQ, AND N/V. HX OF ETOH ABUSE, WITHDRAWAL, SEIZURES, PANCREATITIS. PT STATES LAST ETOH AT 2100 LAST NIGHT. POC REVIEWED WITH PT. PT FEELING LESS PAIN FOLLOWING MEDICATION. CALL LIGHT WITHIN REACH, SR UP X 2, BED IN LOW POSITION. WARM BLANKET PROVIDED.
[2020-06-01 09:44] LABS: ALANINE AMINOTRANSFERASE 142 U/L (12-78); ALBUMIN 4.6 g/dL (3.4-5.0); ANION GAP 12 mmol/L (5-15); CALCIUM 8.9 mg/dL (8.5-10.1); CHLORIDE 97 mmol/L (98-107); CREATININE 0.79 mg/dL (0.55-1.02)
[2020-06-01 09:49] LABS: ALKALINE PHOSPHATASE 106 U/L (45-117); BILIRUBIN,TOTAL 0.7 mg/dL (0.2-1.0); TOTAL PROTEIN 8.9 g/dL (6.4-8.2)
[2020-06-01 09:54] LABS: MD SCAN
--- NOTE | 2020-06-01 10:11 | NUR ---
ROUNDED ON PT. PT IN NAD. PT REMINDED TO KEEP ARM STRAIGHT TO ALLOW NS BOLUS TO INFUSE. CALL LIGHT WITHIN REACH.
[2020-06-01 10:18] LABS: ACETONE, SERUM Negative (Negative)
[2020-06-01 10:39] VITALS: BP 118/79
--- NOTE | 2020-06-01 10:41 | NUR ---
NO VOMITING OR SEIZURE DURING ED STAY. VSS/UPDATED IN COMPUTER. ALL RESULTS BACK, PT FOR RECHECK.
--- NOTE | 2020-06-01 11:37 | NUR ---
PT ABLE TO DRINK APPLE JUICE, REQUESTED, WITHOUT PROBLEM. NO N/V. PAIN LEVEL DECREASED TO 5/10. PT AMBULATORY TO DISCHARGE DESK, DISCHARGED HOME WITH BOYFRIEND.
== END 2020-06-01 11:39 | disposition home or self-care (01) ==
LOC: ED 10:03
DX: K29.20 Alcoholic gastritis without bleeding (principal); F10.139 Alcohol abuse with withdrawal, unspecified; R11.2 Nausea with vomiting, unspecified; R10.13 Epigastric pain; R00.0 Tachycardia, unspecified; E87.6 Hypokalemia; E86.1 Hypovolemia; F17.200 Nicotine dependence, unspecified, uncomplicated; Z90.89 Acquired absence of other organs; Z90.49 Acquired absence of other specified parts of digestive tract; Z90.721 Acquired absence of ovaries, unilateral; Y90.0 Blood alcohol level of less than 20 mg/100 ml
CPT/HCPCS: 36415; 80053; 80320; 82010; 83690; 84703; 85025; 93005; 96361; 96374; 96375; 99284; J2060; J2270; J2405; J7030; G0480

== ENCOUNTER 2020-08-24 05:26 | Emergency (ER) | payer MEDICAID ==
[~2020-08-24] VITALS: Ht 162.6 cm; Wt 64.7 kg
[~2020-08-24 05:26] MED LIST changes: -OXYC-302 PO; +OXYC1TAB14 PO
[2020-08-24] MEDS ORDERED: ONDANSETRON 2MG/ML, 2ML ONE (05:56)
[2020-08-24] MEDS ORDERED: MORPHINE SULFATE 4 MG/ML, 1ML ONE ×2 (05:56→07:03)
[2020-08-24] MEDS ORDERED: SODIUM CHLORIDE 0.9% 1,000ML IVBOLUS ONE (06:00)
[2020-08-24] MEDS ORDERED: ONDANSETRON 2MG/ML, 2ML IVPush ONE (06:00)
[2020-08-24] MEDS ORDERED: SODIUM CHLORIDE FLUSH 10ML SYR IVF ONE (06:00)
[2020-08-24] MEDS: MORPHINE SULFATE 4 MG/ML, 1ML IVPush PRN ×2 (06:08→07:07)
--- NOTE | 2020-08-24 06:22 | NUR ---
Pt states having abd pain x 2 days. Pt with long hx of abd problems and surgeries. Pt provided UA, IV placed, labs sent. Pt medicated per order. Pt on monitor. Warm blanket given. call light in reach. Will monitor.
[2020-08-24 06:35] LABS: BASOPHILS % (AUTO) 1 % (0-1); EOSINOPHILS % (AUTO) 2 % (1-7); LYMPHOCYTES % (AUTO) 27 % (22-44); MEAN CORPUSCULAR HEMOGLOBIN 28.4 pg (27.0-34.8); MEAN CORPUSCULAR HGB CONC 32.7 g/dL (32.4-35.8); MEAN PLATELET VOLUME 11.8 fL (7.4-10.4); MONOCYTES % (AUTO) 13 % (2-9); NEUTROPHILS % (AUTO) 57 % (42-75); PLATELET COUNT 250 x10^3/uL (130-400); RED BLOOD COUNT 4.56 x10^6/uL (3.82-5.3); RED CELL DISTRIBUTION WIDTH 14.8 % (9.6-15.2)
[2020-08-24 06:43] LABS: MD NO
[2020-08-24 06:44] LABS: ALANINE AMINOTRANSFERASE 31 U/L (12-78); ALBUMIN 4.2 g/dL (3.4-5.0); ANION GAP 6 mmol/L (5-15); CALCIUM 9.3 mg/dL (8.5-10.1); CHLORIDE 110 mmol/L (98-107); CREATININE 0.66 mg/dL (0.55-1.02)
[2020-08-24 06:46] LABS: ALKALINE PHOSPHATASE 61 U/L (45-117); BILIRUBIN,TOTAL 0.4 mg/dL (0.2-1.0); TOTAL PROTEIN 8.3 g/dL (6.4-8.2)
[2020-08-24 06:56] LABS: HCG UR SG 1.025 (1.003-1.030)
--- NOTE | 2020-08-24 06:59 | NUR ---
REPORT RECEIVED CARE ASSUMED. PT AMB TO BR AND BACK TO ROOM, GAIT STEADY. PT WITH C/O PAIN "ITS GETTING BAD" 12/26. WAITING FOR TEST RESULTS.
[2020-08-24 07:17] LABS: MICROSCOPIC INDICATED
--- NOTE | 2020-08-24 07:30 | NUR ---
Pt to CT
[2020-08-24] MEDS ORDERED: OMNIPAQUE 350 MG/ML, 100ML BOTTLE ONE (07:42)
--- NOTE | 2020-08-24 07:48 | NUR ---
PT RETURNED FROM CT. REPORTS PAIN 08/26.
--- NOTE | 2020-08-24 08:36 | NUR ---
DR AGARWAL AT BEDSIDE TO RE-EVAL PT
--- NOTE | 2020-08-24 08:58 | NUR ---
PT PROVIDED D/C PAPERWORK. VERBALIZED UNDERSTANDING. IV DC'D TIP INTACT. MOTHER PICKING HER UP.
[2020-08-24 09:00] VITALS: BP 106/70
== END 2020-08-24 09:04 ==
LOC: ED 05:56
DX: K62.89 Other specified diseases of anus and rectum (principal); K59.00 Constipation, unspecified; R10.33 Periumbilical pain; R10.32 Left lower quadrant pain; R10.31 Right lower quadrant pain; R06.02 Shortness of breath; R11.0 Nausea; Z90.89 Acquired absence of other organs; Z90.49 Acquired absence of other specified parts of digestive tract; Z87.891 Personal history of nicotine dependence; Z90.721 Acquired absence of ovaries, unilateral
CPT/HCPCS: 36415; 74177; 80053; 81001; 81025; 83690; 85025; 87086; 96361; 96374; 96375; 96376; 99285; J2270; J2405; J7030; Q9967

== ENCOUNTER 2020-09-04 08:48 | Emergency (ER) | payer MEDICAID ==
[~2020-09-04] VITALS: Ht 162.6 cm; Wt 60.2 kg
--- NOTE | 2020-09-04 09:15 | NUR ---
PT AMBULATORY TO ROOM FROM TRIAGE, PT REFUSED TO CHANGE INTO GOWN. MONITORS IN PLACE. PT STATES SHE DRANK THIS LAST WEEK AFTER BEING SOBER FOR 3X MONTHS. DENIES SOB.
--- NOTE | 2020-09-04 09:21 | NUR ---
PT AMBULATORY TO BR
[2020-09-04] MEDS ORDERED: ONDANSETRON 2MG/ML, 2ML ONE (09:57)
[2020-09-04] MEDS ORDERED: LORazepam 2 MG/ML, 1ML ONE ×2 (09:57→11:34)
[2020-09-04] MEDS ORDERED: SODIUM CHLORIDE 0.9% 1,000ML IVBOLUS ONE (10:00)
[2020-09-04] MEDS ORDERED: LORazepam 2 MG/ML, 1ML IVPush ONE ×2 (10:00→11:30)
[2020-09-04] MEDS ORDERED: ONDANSETRON 2MG/ML, 2ML IVPush ONE (10:00)
--- NOTE | 2020-09-04 10:03 | NUR ---
LAB AT BS. PT SITTING CALMLY ON MARLA GIRON. CALL LIGHT WITHIN REACH
[2020-09-04 10:37] LABS: BASOPHILS % (AUTO) 1 % (0-1); EOSINOPHILS % (AUTO) 0 % (1-7); LYMPHOCYTES % (AUTO) 38 % (22-44); MEAN CORPUSCULAR HGB CONC 32.5 g/dL (32.4-35.8); MEAN PLATELET VOLUME 10.3 fL (7.4-10.4); MONOCYTES % (AUTO) 5 % (2-9); NEUTROPHILS % (AUTO) 56 % (42-75); PLATELET COUNT 163 x10^3/uL (130-400); RED BLOOD COUNT 4.96 x10^6/uL (3.82-5.3); RED CELL DISTRIBUTION WIDTH 14.5 % (9.6-15.2)
[2020-09-04 10:43] LABS: MD NO
[2020-09-04 10:46] LABS: ALBUMIN 4.2 g/dL (3.4-5.0); ANION GAP 12 mmol/L (5-15); CALCIUM 8.7 mg/dL (8.5-10.1); CHLORIDE 99 mmol/L (98-107)
[2020-09-04 10:51] LABS: ALANINE AMINOTRANSFERASE 62 U/L (12-78); ALKALINE PHOSPHATASE 88 U/L (45-117); BILIRUBIN,TOTAL 0.7 mg/dL (0.2-1.0); CREATININE 0.56 mg/dL (0.55-1.02); TOTAL PROTEIN 8.4 g/dL (6.4-8.2)
[2020-09-04 10:59] LABS: MICROSCOPIC NOT IND
--- NOTE | 2020-09-04 11:26 | NUR ---
PT SITTING CALMLY ON MARLA GIRON. CALL LIGHT WITHIN REACH. NO NEEDS AT THIS TIME.
[2020-09-04 12:34] VITALS: BP 131/79
== END 2020-09-04 12:36 | disposition home or self-care (01) ==
LOC: ED 09:11
DX: F10.132 Alcohol abuse with withdrawal with perceptual disturbance (principal); R45.1 Restlessness and agitation; F41.9 Anxiety disorder, unspecified; R11.2 Nausea with vomiting, unspecified; Z90.49 Acquired absence of other specified parts of digestive tract; Y90.0 Blood alcohol level of less than 20 mg/100 ml
CPT/HCPCS: 36415; 74021; 80053; 81003; 84703; 85025; 96361; 96374; 96375; 96376; 99285; J2060; J2405; J7030

== ENCOUNTER 2020-09-09 18:10 | Inpatient (IN) | payer MEDICAID ==
[~2020-09-09] VITALS: Ht 162.6 cm; Wt 61.2 kg
--- NOTE | 2020-09-09 18:25 | NUR ---
Note fransiscoone in EDM - 09/09/20 at 1950 by [email or web address] IV started, labs drawn, pt medicated for pain, nauruan translation provided by julianna at bedside. pt away to ay via two techs.
[2020-09-09] MEDS ORDERED: THIAMINE 100 MG/ML, 2ML ONE (18:54)
[2020-09-09] MEDS ORDERED: ONDANSETRON 2MG/ML, 2ML ONE ×2 (18:55→22:10)
[2020-09-09] MEDS ORDERED: HYDROmorphone 1 MG/ML, 1ML INJ ONE (18:55)
[2020-09-09] MEDS ORDERED: SODIUM CHLORIDE 0.9% 1,000 ML IV ONE (19:00)
[2020-09-09] MEDS ORDERED: THIAMINE 100 MG in SODIUM CHLORIDE 0.9% 50 ML IVPB ONE (19:00)
[2020-09-09] MEDS ORDERED: SODIUM CHLORIDE 0.9% 1,000ML IVBOLUS ONE (19:00)
[2020-09-09] MEDS ORDERED: HYDROmorphone 1 MG/ML, 1ML INJ IV ONE (19:00)
[2020-09-09] MEDS ORDERED: ONDANSETRON 2MG/ML, 2ML IVPush ONE ×2 (19:00→21:30)
[2020-09-09] MEDS ORDERED: SODIUM CHLORIDE FLUSH 10ML SYR IVF ONE (19:00)
--- NOTE | 2020-09-09 19:10 | NUR ---
Assiste dpt to bathroom, attempted urine sample. only diarrhea.
--- NOTE | 2020-09-09 19:32 | NUR ---
IV started, pt medicated for pain on cardiac, spo2 monitor.
--- NOTE | 2020-09-09 20:05 | NUR ---
report from ELI wilson. pt ambulatory to the BR with a shuffled gait.
[2020-09-09 20:12] LABS: ALANINE AMINOTRANSFERASE 109 U/L (12-78); ALBUMIN 3.7 g/dL (3.4-5.0); ANION GAP 9 mmol/L (5-15); BASOPHILS % (AUTO) 0 % (0-1); CALCIUM 8.4 mg/dL (8.5-10.1); CHLORIDE 100 mmol/L (98-107); CREATININE 0.66 mg/dL (0.55-1.02); EOSINOPHILS % (AUTO) 0 % (1-7); LYMPHOCYTES % (AUTO) 28 % (22-44); MEAN CORPUSCULAR HEMOGLOBIN 28.1 pg (27.0-34.8); MEAN CORPUSCULAR HGB CONC 33.3 g/dL (32.4-35.8); MEAN PLATELET VOLUME 11.6 fL (7.4-10.4); MONOCYTES % (AUTO) 7 % (2-9); NEUTROPHILS % (AUTO) 65 % (42-75); RED BLOOD COUNT 4.21 x10^6/uL (3.82-5.3); RED CELL DISTRIBUTION WIDTH 14.5 % (9.6-15.2)
[2020-09-09 20:17] LABS: ALKALINE PHOSPHATASE 84 U/L (45-117); BILIRUBIN,TOTAL 1.6 mg/dL (0.2-1.0); TOTAL PROTEIN 7.4 g/dL (6.4-8.2)
--- NOTE | 2020-09-09 20:23 | NUR ---
pt went to the bathroom and still states cannot urinate.
[2020-09-09] MEDS ORDERED: LORazepam 2 MG/ML, 1ML ONE ×2 (20:29→22:10)
--- NOTE | 2020-09-09 20:30 | NUR ---
piv infiltrated. iv removed and new one started on other arm.
[2020-09-09 20:31] LABS: MD SCAN; PLATELET COUNT 43 x10^3/uL (130-400)
--- NOTE | 2020-09-09 20:32 | NUR ---
i requested meds for withdrawal. orders recieved from dr avery. pt medicated with ativan.
[2020-09-09] MEDS: LORazepam 2 MG/ML, 1ML IVPush PRN ×3 (20:36→22:20)
[2020-09-09] MEDS ORDERED: OMNIPAQUE 350 MG/ML, 100ML BOTTLE ONE (20:40)
[2020-09-09 21:31] LABS: MICROSCOPIC INDICATED
[2020-09-09] MEDS ORDERED: SODIUM CHLORIDE FLUSH 10ML SYR IVF PRN (22:00)
--- NOTE | 2020-09-09 22:26 | NUR ---
report to sandy ricci
[2020-09-09] MEDS ORDERED: ACETAMINOPHEN 325 MG TABLET PO PRN (22:30)
[2020-09-09] MEDS ORDERED: morphine SULFATE 10 MG/ML, 1ML IV PRN (22:30)
[2020-09-09] MEDS ORDERED: LABETALOL 5MG/ML, 20ML IVPush PRN (22:30)
[2020-09-09] MEDS ORDERED: LORazepam 2 MG/ML, 1ML IV PRN ×4 (22:30)
[2020-09-09] MEDS: CEFTRIAXONE 1,000 MG in DEXTROSE 5% 50 ML IVPB SCH (23:14)
[2020-09-09] MEDS: DIAZEPAM 5 MG TABLET PO SCH (23:14)
[2020-09-09] MEDS: morphine SULFATE 10 MG/ML, 1ML IVPush PRN (23:16)
[2020-09-09 23:27] VITALS: BP 149/96
[2020-09-09 23:29] LABS: AMPHETAMINE SCREEN, URINE Negative (Negative); BARBITURATE SCREEN, URINE Negative (Negative); BENZODIAZEPINE SCREEN, URINE Positive (Negative); CANNABINOID SCREEN, URINE Negative (Negative); COCAINE SCREEN, URINE Negative (Negative); METHADONE SCREEN, URINE Negative (Negative); OPIATE SCREEN, URINE Positive (Negative)
[2020-09-10] MEDS: POTASSIUM CHLORIDE 20 MEQ, MAGNESIUM SULFATE 2 GM, THIAMINE 200 MG, FOLIC ACID 1 MG in ... IV SCH ×2 (00:56→03:39)
[2020-09-10 03:22] VITALS: BP 138/92
[2020-09-10 05:25] LABS: BASOPHILS % (AUTO) 1 % (0-1); EOSINOPHILS % (AUTO) 3 % (1-7); LYMPHOCYTES % (AUTO) 46 % (22-44); MEAN CORPUSCULAR HEMOGLOBIN 28.5 pg (27.0-34.8); MEAN CORPUSCULAR HGB CONC 33.2 g/dL (32.4-35.8); MEAN PLATELET VOLUME 11.6 fL (7.4-10.4); MONOCYTES % (AUTO) 10 % (2-9); NEUTROPHILS % (AUTO) 40 % (42-75); RED BLOOD COUNT 3.87 x10^6/uL (3.82-5.3); RED CELL DISTRIBUTION WIDTH 14.6 % (9.6-15.2)
[2020-09-10 05:32] LABS: ALBUMIN 3.2 g/dL (3.4-5.0); ANION GAP 7 mmol/L (5-15); CALCIUM 7.6 mg/dL (8.5-10.1); CHLORIDE 102 mmol/L (98-107)
[2020-09-10 05:36] LABS: ALANINE AMINOTRANSFERASE 86 U/L (12-78); ALKALINE PHOSPHATASE 71 U/L (45-117); BILIRUBIN,TOTAL 1.3 mg/dL (0.2-1.0); TOTAL PROTEIN 6.3 g/dL (6.4-8.2)
[2020-09-10] MEDS: DIAZEPAM 5 MG TABLET PO SCH (05:41)
[2020-09-10 05:45] LABS: PLATELET COUNT 45 x10^3/uL (130-400)
[2020-09-10] MEDS: ONDANSETRON 2MG/ML, 2ML IVPush PRN ×2 (05:48→11:30)
[2020-09-10 06:02] LABS: MD MORPH REVIEW ONLY
[2020-09-10 06:03] LABS: ANISOCYTOSIS 1+
[2020-09-10 06:04] LABS: ACANTHOCYTES 1+; HOWELL-JOLLY BODIES 1+; HYPOCHROMIA 1+; OVALOCYTES 1+; TARGET CELLS 1+
[2020-09-10 06:05] LABS: <PLATELET ESTIMATE> DECREASED
[2020-09-10 06:06] LABS: LARGE PLATELETS 1+
[2020-09-10 06:21] VITALS: BP 120/82
[2020-09-10] MEDS: PROMETHAZINE 25 MG/ML, 1ML IM PRN ×2 (08:23→15:32)
[2020-09-10] MEDS: morphine SULFATE 10 MG/ML, 1ML IVPush PRN (08:36)
[2020-09-10] MEDS ORDERED: ACETAMINOPHEN 325 MG TABLET PO PRN (09:00)
[2020-09-10] MEDS ORDERED: POTASSIUM CHLORIDE 20 MEQ TAB.ER.PRT PO ONE (09:00)
[2020-09-10] MEDS: LACTOBACILLUS CHEW TABLET PO SCH ×3 (11:27→20:38)
[2020-09-10] MEDS: MORPHINE SULFATE 4 MG/ML, 1ML IVPush PRN ×3 (11:29→20:59)
[2020-09-10 13:28] VITALS: BP 132/81
[2020-09-10] MEDS: METRONIDAZOLE PMX 500MG/100ML 100 ML IV SCH ×2 (14:55→20:38)
[2020-09-10] MEDS: SODIUM CHLORIDE 0.9% 1,000 ML IV SCH (14:55)
[2020-09-10] MEDS: LORazepam 2 MG/ML, 1ML IV PRN (15:31)
[2020-09-10 19:38] VITALS: BP 130/90
[2020-09-10] MEDS ORDERED: DIAZEPAM 5 MG TABLET PO SCH (22:30)
[2020-09-10] MEDS: CEFTRIAXONE 1,000 MG in DEXTROSE 5% 50 ML IVPB SCH (22:30)
[2020-09-11] MEDS: MORPHINE SULFATE 4 MG/ML, 1ML IVPush PRN ×3 (00:07→07:55)
[2020-09-11 01:12] VITALS: BP 122/84
[2020-09-11] MEDS: METRONIDAZOLE PMX 500MG/100ML 100 ML IV SCH ×3 (04:55→20:33)
[2020-09-11 06:19] LABS: CHLORIDE 105 mmol/L (98-107)
[2020-09-11 06:27] LABS: % IRON SATURATION 23 % (20-55); ANION GAP 10 mmol/L (5-15); CALCIUM 8.2 mg/dL (8.5-10.1); CREATININE 0.49 mg/dL (0.55-1.02); IRON LEVEL 47 mcg/dL (50-170); TOTAL IRON BINDING CAPACITY 202 mcg/dL (250-450)
[2020-09-11 06:39] VITALS: BP 129/76
[2020-09-11] MEDS: LACTOBACILLUS CHEW TABLET PO SCH ×3 (07:56→20:33)
[2020-09-11] MEDS: LORazepam 2 MG/ML, 1ML IV PRN (08:48)
[2020-09-11] MEDS: ONDANSETRON 2MG/ML, 2ML IVPush PRN (08:48)
[2020-09-11] MEDS: SODIUM CHLORIDE 0.9% 1,000 ML IV SCH (10:46)
[2020-09-11] MEDS ORDERED: LORazepam 0.5MG TABLET PO PRN (12:30)
[2020-09-11] MEDS ORDERED: LORazepam 1MG TABLET PO PRN (12:30)
[2020-09-11 13:04] VITALS: BP 111/72
[2020-09-11] MEDS: LORazepam 1MG TABLET PO PRN ×2 (13:14→17:03)
[2020-09-11] MEDS: OXYcodone IR 5MG TABLET PO PRN ×2 (13:18→17:03)
[2020-09-11 18:23] VITALS: BP 115/77
[2020-09-11] MEDS ORDERED: MORPHINE SULFATE 4 MG/ML, 1ML IVPush PRN (21:00)
[2020-09-11] MEDS: CEFTRIAXONE 1,000 MG in DEXTROSE 5% 50 ML IVPB SCH (22:31)
[2020-09-12] MEDS: LORazepam 1MG TABLET PO PRN (00:18)
[2020-09-12 01:23] VITALS: BP 132/80
[2020-09-12] MEDS: OXYcodone IR 5MG TABLET PO PRN ×2 (02:01→08:17)
[2020-09-12] MEDS: SODIUM CHLORIDE 0.9% 1,000 ML IV SCH (03:30)
[2020-09-12] MEDS: METRONIDAZOLE PMX 500MG/100ML 100 ML IV SCH (04:28)
[2020-09-12 07:00] VITALS: BP 107/70
[2020-09-12] MEDS: LACTOBACILLUS CHEW TABLET PO SCH (08:16)
[2020-09-12] MEDS ORDERED: AMOXICILLIN/CLAV 875-125MG TABLET PO SCH (09:00)
[2020-09-12] MEDS: ONDANSETRON 2MG/ML, 2ML IVPush PRN (10:51)
[2020-09-12] MEDS ORDERED: ACID1TAB7 PO (10:57)
[2020-09-12] MEDS ORDERED: METR500T PO (10:57)
[2020-09-12] MEDS ORDERED: CHLO5CAP2 PO (10:57)
[2020-09-12] MEDS ORDERED: AMOX1TAB12 PO (10:57)
[2020-09-12] MEDS ORDERED: ACET325T26 PO (10:57)
[2020-09-12] MEDS ORDERED: metroNIDAZOLE 500 MG TABLET PO SCH (12:00)
== END 2020-09-12 12:05 | disposition home or self-care (01) | DRG 433 ==
LOC: ED 20:58 → EDIP 22:00 → 5SO 22:47 → 4WST 09-12 08:40 → DCLOUNGE 09-12 11:55
PROVIDERS: ADMIT Family Medicine; ATTEND Internal Medicine
DX: K70.10 Alcoholic hepatitis without ascites (principal); F10.239 Alcohol dependence with withdrawal, unspecified; E83.51 Hypocalcemia; K29.20 Alcoholic gastritis without bleeding; F41.1 Generalized anxiety disorder; D69.59 Other secondary thrombocytopenia; E87.6 Hypokalemia; G89.29 Other chronic pain; K52.9 Noninfective gastroenteritis and colitis, unspecified; N30.90 Cystitis, unspecified without hematuria; K76.0 Fatty (change of) liver, not elsewhere classified; Z88.5 Allergy status to narcotic agent; Z88.8 Allergy status to other drugs, medicaments and biological substances; Z90.49 Acquired absence of other specified parts of digestive tract; Z90.81 Acquired absence of spleen
CPT/HCPCS: 36415; 96365; 96375; 96376; 99285; J7042; 74177; 80048; 80053; 80307; 80320; 81001; 82330; 83540; 83550; 83690; 83735; 84100; 84703; 85025; 87086; 93005; G0378; J0696; J1170; J2405; J2550; J3411; J3475; J3480; Q9967; G0480; J2060; J2270; J7030

== ENCOUNTER 2020-12-26 12:25 | Emergency (ER) | payer BC, MEDICAID ==
[~2020-12-26] VITALS: Ht 162.6 cm; Wt 64.0 kg
[~2020-12-26 12:25] MED LIST changes: +ACET325T26 PO; +ACID1TAB7 PO; +AMOX1TAB12 PO; +CHLO5CAP2 PO; +METR500T PO
[2020-12-26] MEDS ORDERED: MAALOX/HYOSCYAMINE/LIDOCAINE 45 ML BTL PO ONE (13:00)
[2020-12-26 13:07] LABS: MICROSCOPIC AUTO
[2020-12-26 13:12] LABS: BASOPHILS % (AUTO) 1 % (0-1); EOSINOPHILS % (AUTO) 0 % (1-7); LYMPHOCYTES % (AUTO) 34 % (22-44); MEAN CORPUSCULAR HEMOGLOBIN 28.1 pg (27.0-34.8); MEAN CORPUSCULAR HGB CONC 33.3 g/dL (32.4-35.8); MEAN PLATELET VOLUME 9.7 fL (7.4-10.4); MONOCYTES % (AUTO) 11 % (2-9); NEUTROPHILS % (AUTO) 54 % (42-75); PLATELET COUNT 212 x10^3/uL (130-400); RED BLOOD COUNT 4.31 x10^6/uL (3.82-5.3); RED CELL DISTRIBUTION WIDTH 14.7 % (9.6-15.2)
[2020-12-26] MEDS ORDERED: ONDANSETRON 2MG/ML, 2ML ONE (13:20)
[2020-12-26] MEDS ORDERED: MAALOX/HYOSCYAMINE/LIDOCAINE 45 ML BTL ONE (13:20)
[2020-12-26] MEDS ORDERED: FAMOTIDINE 20 MG/2 ML ONE (13:20)
[2020-12-26 13:22] LABS: ALANINE AMINOTRANSFERASE 27 U/L (12-78); ALBUMIN 3.8 g/dL (3.4-5.0); ANION GAP 8 mmol/L (5-15); CALCIUM 8.4 mg/dL (8.5-10.1); CHLORIDE 104 mmol/L (98-107); CREATININE 0.62 mg/dL (0.55-1.02)
[2020-12-26] MEDS ORDERED: SODIUM CHLORIDE 0.9% 1,000ML IVBOLUS ONE (13:30)
[2020-12-26] MEDS ORDERED: FAMOTIDINE 20 MG/2 ML IVPush ONE (13:30)
[2020-12-26] MEDS ORDERED: ONDANSETRON 2MG/ML, 2ML IVPush ONE (13:30)
--- NOTE | 2020-12-26 13:34 | NUR ---
PT BIB SELF VIA POV. PER PT SHE IS 4 WEEKS . LMP 11/26. . PT REPORTS NAUSEA AND ABD PAIN THAT IS "CRAMPY" IN BILAT LOWER QUAD AND R UPPER QUADS. PT STATES WHEN SHE PEES THE CRAMPING GETS WORSE. PT RESTING IN [facility], MONTIORING IN PLACE, MARLA AT THIS TIME, WCTM.
[2020-12-26 13:40] LABS: ALKALINE PHOSPHATASE 53 U/L (45-117); BILIRUBIN,TOTAL 0.4 mg/dL (0.2-1.0); TOTAL PROTEIN 8.1 g/dL (6.4-8.2)
[2020-12-26 13:42] VITALS: BP 125/81
== END 2020-12-26 14:58 | disposition home or self-care (01) ==
LOC: ED 14:50
DX: O20.0 Threatened abortion (principal); R10.31 Right lower quadrant pain; R00.0 Tachycardia, unspecified; Z3A.01 Less than 8 weeks gestation of pregnancy
CPT/HCPCS: 36415; 76801; 80053; 81001; 84702; 85025; 87086; 87147; 96361; 96374; 99284; J7030

== ENCOUNTER 2020-12-28 03:19 | Emergency (ER) | payer MEDICAID ==
[~2020-12-28] VITALS: Ht 162.6 cm; Wt 64.5 kg
[2020-12-28] MEDS ORDERED: SODIUM CHLORIDE FLUSH 10ML SYR IVF ONE (03:30)
[2020-12-28 04:14] LABS: BASOPHILS % (AUTO) 1 % (0-1); EOSINOPHILS % (AUTO) 1 % (1-7); LYMPHOCYTES % (AUTO) 39 % (22-44); MEAN CORPUSCULAR HEMOGLOBIN 28.1 pg (27.0-34.8); MEAN CORPUSCULAR HGB CONC 33.1 g/dL (32.4-35.8); MEAN PLATELET VOLUME 10.2 fL (7.4-10.4); MONOCYTES % (AUTO) 16 % (2-9); NEUTROPHILS % (AUTO) 43 % (42-75); PLATELET COUNT 200 x10^3/uL (130-400); RED BLOOD COUNT 4.21 x10^6/uL (3.82-5.3); RED CELL DISTRIBUTION WIDTH 14.8 % (9.6-15.2)
[2020-12-28 04:23] LABS: ALBUMIN 3.5 g/dL (3.4-5.0); ANION GAP 6 mmol/L (5-15); CALCIUM 8.5 mg/dL (8.5-10.1); CHLORIDE 105 mmol/L (98-107)
--- NOTE | 2020-12-28 04:28 | NUR ---
PATIENT BACK FROM ULTRASOUND.
[2020-12-28 04:44] LABS: ALANINE AMINOTRANSFERASE 25 U/L (12-78); ALKALINE PHOSPHATASE 51 U/L (45-117); BILIRUBIN,TOTAL 0.3 mg/dL (0.2-1.0); CREATININE 0.55 mg/dL (0.55-1.02); TOTAL PROTEIN 7.5 g/dL (6.4-8.2)
--- NOTE | 2020-12-28 05:09 | NUR ---
REPORT GIVEN TO ELI ROMAN
[2020-12-28 05:42] VITALS: BP 103/66
[2020-12-28] MEDS ORDERED: MAALOX/HYOSCYAMINE/LIDOCAINE 45 ML BTL PO ONE (06:00)
== END 2020-12-28 06:33 | disposition home or self-care (01) ==
LOC: ED 03:31
DX: O26.891 Other specified pregnancy related conditions, first trimester (principal); R10.84 Generalized abdominal pain; R11.0 Nausea; Z3A.01 Less than 8 weeks gestation of pregnancy; Z90.89 Acquired absence of other organs; Z90.49 Acquired absence of other specified parts of digestive tract; Z87.891 Personal history of nicotine dependence; Z90.710 Acquired absence of both cervix and uterus
CPT/HCPCS: 36415; 76801; 80053; 80320; 83690; 84702; 85025; 86901; 99284; G0480